=== PATIENT | male | born 1965 | race Caucasian/White ===

== ENCOUNTER 2022-03-12 16:09 | Emergency (ER) | payer OTHER, SELFPAY ==
[2022-03-12] VITALS (44 sets, daily range): BP systolic 126–161; BP diastolic 90–139; PULSE 101–180; RESP 13–26; TEMP 36.4; O2SAT 93–99
--- NOTE | ~2022-03-12 | XR_ITS ---
EXAMINATION: XR chest 1V portable DATE: 03/12/2022 16:47 INDICATION: Shortness of breath. TECHNIQUE: A single frontal view of the chest was obtained. COMPARISON: Chest single view 09/28/2018, chest CT 09/28/2018 FINDINGS: There are small pleural effusions. There is mild atelectasis at the lung bases. No pneumoth orax. The heart size is normal. IMPRESSION: 1. Small pleural effusions. 2. Mild atelectasis at the lung bases. Reviewed, dictated and finalized at location A.
--- NOTE | ~2022-03-12 | CT_ITS ---
EXAMINATION: CTA chest PE protocol DATE: 03/12/2022 18:10 INDICATION: sob with positive D Dimer TECHNIQUE: Computed tomography angiography (CTA) of the chest was performed with 100 mL Omnipaque-350 intravenous contrast timed to evaluate the pulmonary arteries. Coronal maximum intensity projection 3D-reconstructions were created by the technologist. The dose-length product (DLP) was 721.82 mGy-cm. Automated exposure control and iterative reconstruction technique were employed. COMPARISON: 09/28/2018. X-ray chest, same date FINDINGS: Study quality: . Pulmonary arteries: No pulmonary emboli detected. Thoracic aorta: Normal. Lung parenchyma and airways: Bibasilar atelectasis. Airways are clear. Thoracic inlet, axillae and chest wall: Bilateral gynecomastia. Mediastinum: Unchanged enlarged precarinal lymph node. Heart and pericardium: Mild cardiomegaly. Coronary artery calcifications: Mild. Pleura: Small left and moderate right pleural fluid collections. Upper abdomen: No significant finding. Bones: No acute osseous finding. IMPRESSION: No CT evidence of acute pulmonary embolus. Moderate right and small left pleural effusions. Reviewed, dictated and finalized at location K. IMPRESSION: No CT evidence of acute pulmonary embolus. Moderate right and small left pleura l effusions.
[2022-03-12] MEDS: dilTIAZem HCl INJ 25 MG/5 ML VIAL (16:32)
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
--- NOTE | 2022-03-12 16:36 | ECG_ITS ---
Measurements Intervals [place] Rate: 161 P: OR: 0 QRS: 92 QRSD: 71 T: 22 QT: 270 QTc: 442 Interpretive Statements ATRIAL FIBRILLATION WITH RAPID VENTRICULAR RESPONSE VENTRICULAR PREMATURE COMPLEX AND FREQUENT VENTRICULAR COUPLETS RIGHT AXIS DEVIATION NONSPECIFIC T-WAVE ABNORMALITY- INF/HIGH LAT LEADS BASELINE ARTIFACT- I, II, III, V4-V6 ABNORMAL ECG Electronically Signed On 03-12-2022 22:56:26 CDT by Magdaleno Tavera D.O.
[2022-03-12] MEDS: LEVALBUTEROL NEB 1.25 MG/3 ML INHALATION (16:52)
[2022-03-12 17:00] LABS: Hematocrit 44.3 % (40.0-54.0); Hemoglobin 15.1 g/dL (14.0-18.0); Mean Corpuscular HGB Conc 34.1 g/dL (32.0-36.0); Mean Corpuscular Hemoglobin 32.1 pg (27.0-31.0); Mean Corpuscular Volume 94.3 fL (78.0-102.0); Mean Platelet Volume 9.4 fl (8.7-11.0); Platelet Count Result 306 K/mm3 (150-420); Red Cell Distribution Width 13.8 % (11.6-14.4); White Blood Count 11.3 K/mm3 (4.8-10.8)
[2022-03-12 17:02] LABS: HCO3 ABG 22.5 mmol/L (23-29); Modified Allen's Test Pass; Oxygen Content ABG 21.7 %vol (16.0-22.0); Oxygen Saturation ABG 98.8 % (95-97); Oxyhemoglobin 96.8 % (94-100); PCO2 ABG 28.4 mmHg (35-45); PO2 ABG 140.2 mmHg (80-90); Site Drawn RIGHT RADIAL; Total Hemoglobin 15.8 g/dL (12.0-18.0); pH ABG 7.52 (7.35-7.45)
[2022-03-12 17:03] LABS: Device ROOM AIR
[2022-03-12] MEDS: dilTIAZem 100 MG/100 ML 100 MG/100 ML BAG IV CONT (17:07)
--- NOTE | 2022-03-12 17:15 | PC.NURSE ---
pt is sitting on stretcher texting on cell phone. pt denies any change in status. pt breathing is no longer labored at rest. pt is awaiting results at this time. will continue to monitor.
[2022-03-12 17:17] LABS: Glucose Point of Care 86 mg/dl (65-105)
[2022-03-12 17:18] LABS: Partial Thromboplastin Time 28.8 SEC (23.90-30.70); Prothrombin Time 11.4 Seconds (9.50-12.10)
[2022-03-12 17:33] LABS: Alanine Aminotransferase 42 U/L (16-63); Albumin Level 3.7 g/dL (3.4-5.0); Alkaline Phosphatase 72 U/L (46-116); Anion Gap 11 mmol/L (8-16); Aspartate Amino Transferase 29 U/L (15-37); Bilirubin,Total 1.3 mg/dL (0.00-1.00); Blood Urea Nitrogen 13 mg/dL (7-18); Calcium 8.9 mg/dL (8.5-10.1); Carbon Dioxide 23 mmol/L (21-32); Chloride 105 mmol/L (98-108); Estimated CRCL calculation 83 ml/min; Estimated Glomerular Filt Rate > 60; Glucose 114 mg/dL (70-99); Magnesium 1.8 mg/dL (1.8-2.4); NT Pro B Type Natriuretic Pept 10568 pg/mL (0-125); Osmolality Calculated 289 mOsm/kg (285-295); Potassium 4.1 mmol/L (3.5-5.1); Sodium 139 mmol/L (136-145); Total Protein 7.4 g/dL (6.4-8.2); Troponin I 42.6 ng/L (0.00-60.4)
[2022-03-12 17:41] LABS: D Dimer 2.03 mg/L (0.19-0.50)
[2022-03-12 17:47] LABS: SARS-CoV-2 RNA PCR Negative (Negative)
[2022-03-12 17:48] LABS: Band Neutrophils Percent 0 % (0-6); Basophils Percent Manual 0 % (0-1); Eosinophils Percent Manual 0 % (1-6); Influenza A QL RT-PCR Negative (Negative); Influenza B QL RT-PCR Negative (Negative); Lymphocytes Absolute Manual 1.92 K/mm3 (1.1-4.5); Lymphocytes Percent Manual 17 % (18-44); Monocytes Absolute Manual 2.48 K/mm3 (0.1-0.90); Monocytes Percent Manual 22 % (3-9); Neutrophils Absolute Manual 6.89 K/mm3 (1.3-6.7); Neutrophils Percent Manual 61 % (46-73); Total Cells Counted 100
[2022-03-12 17:49] LABS: Platelet Estimate Adequate (Adequate)
[2022-03-12] MEDS: FUROSEMIDE INJ 40 MG/4 ML VIAL IV PUSH (17:53)
[2022-03-12] MEDS: DIGOXIN INJ 250 MCG/ML 2 ML AMP (*BKC) IV PUSH (17:55)
--- NOTE | 2022-03-12 17:58 | PC.NURSE ---
PT TO CT AT THIS TIME. ICE CHIPS WERE PROVIDED REQUESTED. PT WAS INCREASED TO 20MG DILTIAZEM DRIP PER DR LOCO. IV MEDICATION IS INFUSING WITHOUT DIFFICULTY. WILL CONTINUE TO MONITOR.
--- NOTE | 2022-03-12 18:16 | PC.NURSE ---
PT HAS RETURNED FROM CT, TO RR WITHOUT DISTRESS. PT RETURNED TO IV MEDICATION AND MONITOR. NAD NOTED. PT DENIES COMPLAINTS, PT CONTINUES TO REMAIN TACHYCARDIC. WILL CONTINUE TO MONITOR.
--- NOTE | 2022-03-12 18:49 | PC.NURSE ---
pt up to bedside to use urinal 1000ml total output this far.
[2022-03-12 19:20] LABS: Add Urine Microscopic? NO; Appearance Urine Clear (Clear); Bilirubin Urine Negative (Negative); Blood Urine Negative (Negative); Color Urine Light Yellow (Yellow); Glucose Urine UA Negative (Negative); Ketones Urine Negative (Negative); Leukocyte Esterase Ur Negative LEU/UL (Negative); Nitrate Urine Negative (Negative); Protein Urine Negative (Negative); Specific Grav Ur 1.015 (1.010-1.020); Urobilinogen Urine 0.2 mg/dL (0.2-1.0)
[2022-03-12 19:28] LABS: Amphetamine Screen Urine Negative (Negative); Barbiturate Screen Urine Negative (Negative); Benzodiazepines Screen Urine Negative (Negative); Cannabinoid Screen Urine Negative (Negative); Cocaine Screen Urine Negative (Negative); Methadone Screen Urine Negative (Negative); Opiate Screen Urine Negative (Negative); Phencyclidine Screen Urine Negative (Negative)
== END 2022-03-12 20:58 | disposition short-term general hospital (02) ==
PROVIDERS: Emergency Provider Internal Medicine Critical Care Medicine; PCP Internal Medicine
DX: I48.20 Chronic atrial fibrillation, unspecified (principal); I50.9 Heart failure, unspecified; J44.1 Chronic obstructive pulmonary disease with (acute) exacerbation; Z20.822 Contact with and (suspected) exposure to COVID-19
CPT/HCPCS: 36415; 36600; 71045; 71275; 80053; 80307; 81003; 82805; 82948; 83735; 83880; 84484; 85025; 85380; 85610; 85730; 87502; 93005; 94640; 96365; 96372; 96375; 99285; C9803; J1160; J1940; Q9967; U0003; U0005

== ENCOUNTER 2022-03-12 21:29 | Inpatient (IN) | payer OTHER, SELFPAY ==
--- NOTE | ~2022-03-12 | US_ITS ---
US abdomen limited INDICATION: PROCEDURE: Realtime right upper abdominal ultrasound. COMPARISON: No prior studies for comparison. FINDINGS: The pancreas is normal without focal mass or pancreatic ductal dilation. Liver echotexture is increased, consistent with fatty infiltration. There is normal directional flow in the portal ve in. Gallbladder wall is thickened with trace pericholecystic fluid. No definite gallstones. Common bile duct measures 4.4 mm. No sonographic De Santiago's sign. IMPRESSION: 1: Hepatic steatosis. 2: Thickened gallbladder wall with pericholecystic fluid. Consider acalculous cholecystitis in the a ppropriate clinical setting. Reviewed, dictated and finalized at location A. IMPRESSION: 1: Hepatic steatosis. 2: Thickened gallbladder wall with pericholecystic fluid. Consider acalculous cholecystitis in the appropriate clinical setting.
[2022-03-12 21:30] VITALS: BMI 29.9
--- NOTE | 2022-03-12 21:30 | ADMGEN ---
This patient, Db Carbajal, was admitted to IMU Room 205-01. Patient/family oriented to hospital policies and general routines including ID bracelet, bed and alarms, visiting hours, pain management, procedures, bathroom and other care routines, personal items, smoking policy, room service/diet, and visiting hours. Information on how to activate the Rapid Response Team has been discussed. Patient/Family are encouraged to report perceived risks to care and to ask questions if they do not understand what they are told or what they should do.
[2022-03-12 21:36] VITALS: BP 137/74; PULSE 108; RESP 20; TEMP 37.3; O2SAT 98
[2022-03-12 21:37] VITALS: BMI 28.9
[2022-03-12 22:00] VITALS: PULSE 124
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
--- NOTE | 2022-03-12 23:38 | ECG_ITS ---
Measurements Intervals [place] Rate: 122 P: MT: 0 QRS: 53 QRSD: 67 T: 155 QT: 307 QTc: 438 Interpretive Statements ATRIAL FIBRILLATION WITH RAPID VENTRICULAR RESPONSE VENTRICULAR TRIPLET AND VENTRICULAR PREMATURE COMPLEX BORDERLINE R WAVE PROGRESSION, ANTERIOR LEADS NONSPECIFIC ST & T-WAVE ABNORMALITY- DIFFUSE LEADS ABNORMAL ECG Electronically Signed On 03-13-2022 16:12:40 CDT by Magdaleno Tavera D.O.
[2022-03-12 23:49] VITALS: BP 131/81; PULSE 115; RESP 18; TEMP 36.6; O2SAT 99
[2022-03-12 23:55] VITALS: PULSE 119
[2022-03-12 23:56] LABS: Troponin I 0.037 ng/mL (0.000-0.034)
[2022-03-13] VITALS (18 sets, daily range): BP systolic 109–155; BP diastolic 73–98; PULSE 74–124; RESP 14–20; TEMP 36.3–36.9; O2SAT 94–99
--- NOTE | 2022-03-13 | ECHO_ITS ---
Patient Info Name: Db Carbajal Age: 56 years : 1965 Gender: Male Ht: 71 in Wt: 207 lbs BSA: 2.19 m2 HR: 81 bpm BP: 155 / 98 mmHg Exam Date: 03/13/2022 8:28 AM Exam Location: [facility] Patient Status: Outpatient Admit Date: 03/12/2022 Staff Ordering Physician: Marley Rome DO Deputy Fire Marshal: Shun De Santiago RDCS, RT Attending Provider: Marley Rome DO Referring Physician: Wild SINGH; Exam Type: CA echo dop color flow w con Study Info Indications I48.1 - Persistent atrial fibrillation Complete two-dimensional, color flow and Doppler transthoracic echocardiogram is performed with contrast to opacify the left ventricle and to improve the deliniation of the left ventricle endocardial borders. Summary 1. Left ventricular systolic function is moderately reduced, estimated at 30-35%. 2. Left ventricular chamber dimension is mildly enlarged. 3. There is mildly increased left ventricular wall thickness. 4. The left ventricular diastolic function is abnormal. 5. Right ventricular chamber dimension is moderately enlarged. 6. Right ventricular systolic function is reduced. 7. There is mild aortic valve sclerosis. 8. There is mild mitral valve regurgitation. 9. There is mild tricuspid valve regurgitation. 10. No pulmonary hypertension, estimated pulmonary arterial systolic pressure is 28 mmHg. 11. There is mild pulmonic regurgitation. Left Ventricle Left ventricular chamber dimension is mildly enlarged. Left ventricular systolic function is moderately reduced, estimated at 30-35%. There is mildly increased left ventricular wall thickness. Left ventricular septal wall motion is normal. The left ventricular diastolic function is abnormal. Right Ventricle Right ventricular chamber dimension is moderately enlarged. Right ventricular systolic function is reduced. Left Atria Left atrial chamber dimension is mildly enlarged. Right Atria Right atrial chamber dimension is moderately enlarged. Atrial Septum Intact interatrial septum visualized by color flow imaging. Aortic Valve The aortic valve is trileaflet. There is mild aortic valve sclerosis. There is no aortic valve stenosis. There is no aortic valve regurgitation. Pulmonic Valve The pulmonic valve is normal. There is no pulmonic valve stenosis. There is mild pulmonic regurgitation. Mitral Valve The mitral valve has normal leaflets. There is no mitral valve stenosis. There is mild mitral valve regurgitation. Tricuspid Valve The tricuspid valve leaflets are normal. There is no significant tricuspid valve stenosis. There is mild tricuspid valve regurgitation. No pulmonary hypertension, estimated pulmonary arterial systolic pressure is 28 mmHg. Pericardium/Pleural The pericardium appears normal. There is no pericardial effusion. Inferior Vena Cava Dilated inferior vena cava with <50% collapse upon inspiration consistent with Empty right atrial pressure, 15 mmHg. Aorta The aortic root size at the sinus of Valsalva is normal. The prox ascending aorta size is normal. Left Ventricular Outflow Tract Name Value Normal LVOT 2D LVOT Diameter 2.04 cm LVOT Doppler ---------
[2022-03-13] MEDS: METOPROLOL TARTRATE 50 MG TAB PO ×3 (00:46→20:27)
[2022-03-13] MEDS: dilTIAZem 100 MG/100 ML 100 MG/100 ML BAG 10 MG IV CONT ×2 (01:07→09:55)
[2022-03-13 03:07] LABS: Troponin I 0.042 ng/mL (0.000-0.034)
[2022-03-13 04:51] LABS: Basophils Absolute Auto 0.1 K/mm3 (0.0-0.1); Basophils Percent Auto 1.1 % (0.2-1.2); Eosinophils Absolute Auto 0.1 K/mm3 (0-0.3); Eosinophils Percent Auto 0.7 % (0-4.4); Hematocrit 44.7 % (42.0-52.0); Hemoglobin 14.8 g/dL (14.0-18.0); Immature Granulocyte Absolute 0.03 K/mm3 (0.00-0.031); Immature Granulocyte Percent A 0.3 % (0-0.5); Lymphocytes Absolute Auto 1.75 K/mm3 (0.9-3.2); Lymphocytes Percent Auto 16.1 % (18.3-44.2); Mean Corpuscular HGB Conc 33.1 g/dl (32-36); Mean Corpuscular Hemoglobin 31.7 pg (26-34); Mean Corpuscular Volume 95.7 fl (80-100); Mean Platelet Volume 9.4 fl (7.4-10.4); Monocytes Absolute Auto 2.1 K/mm3 (0.1-0.6); Monocytes Percent Auto 19.7 % (2.6-8.5); Neutrophils Absolute Auto 6.7 K/mm3 (1.3-6.7); Neutrophils Percent Auto 62.1 % (45.5-73.1); Platelet Count Result 295 k/mm3 (150-375); Red Blood Count 4.67 M/mm3 (4.6-6.20); Red Cell Distribution Width 14.5 % (11.5-14.5); White Blood Count 10.9 K/mm3 (4.5-10.0)
[2022-03-13 05:05] LABS: Cholesterol 163 mg/dL (0-200); HDL Direct 33 mg/dL; Triglycerides 97 mg/dL (<150)
[2022-03-13 05:07] LABS: Magnesium 1.9 mg/dL (1.6-2.3); Phosphorus 4.3 mg/dL (2.5-4.5)
[2022-03-13 05:08] LABS: Anion Gap 6 mmol/L (8-16); Blood Urea Nitrogen 14 mg/dL (9-20); Calcium 8.8 mg/dL (8.4-10.2); Carbon Dioxide 31 mmol/L (22-30); Chloride 102 mmol/L (98-107); Estimated CRCL calculation 94 ml/min; Estimated Glomerular Filt Rate > 60; Glucose 113 mg/dL (65-110); Sodium 139 mmol/L (137-145)
[2022-03-13 05:17] LABS: LDL Cholesterol Direct 102 mg/dL
[2022-03-13 05:21] LABS: Troponin I 0.043 ng/mL (0.000-0.034)
[2022-03-13 06:17] LABS: Folic Acid > 20.0 ng/mL (2.76->20)
[2022-03-13] MEDS: PERFLUTREN LIPID MICROSPHERES 1.5 ML VIAL DILUTED TO 10 ML TOTAL VOLUME IV PUSH (08:26)
--- NOTE | 2022-03-13 08:26 | IVDEFINITY ---
Prior to administration of IV Definity the patient was educated on the risks and benefits of the imaging enhancing agent including potential adverse side effects. The patient verbalized understanding. Allergies were verified. No exclusion criteria were identified and at least one of the following inclusion criteria were met: 1) physician request, 2) patient technically difficult to image (per the [place] [employer] guidelines of two or more segments not discernable within the apical view), or 3) questionable left ventricular function. ?
--- NOTE | 2022-03-13 09:10 | PM.IMPN ---
Progress Note: A&P Assessment and Plan (1) Atrial fibrillation with rapid ventricular response: Code(s): I48.91 - Unspecified atrial fibrillation Status: Acute Assessment and Plan: On diltiazem ggt with rate control. Will continue for now. Appreciate Cardiology recommendations. -Continue diltiazem ggt and will need to transition to oral -Continue enoxaparin (2) Acute exacerbation of CHF (congestive heart failure): Code(s): I50.9 - Heart failure, unspecified Status: Acute Assessment and Plan: EF 30-35% with dilated LV, enlarged RV, mild pulmonic regurgitation. (3) Elevated troponin: Code(s): R77.8 - Other specified abnormalities of plasma proteins Status: Acute Assessment and Plan: Troponin flat. Likely elevated due to demand ischemia w/ elevated heart rate w/ atrial fibrillation with rvr. Appreciate recommendations from cardiology. (4) Chronic alcohol abuse: Code(s): F10.10 - Alcohol abuse, uncomplicated Status: Acute Assessment and Plan: CIWA protocol. (5) Continuous tobacco abuse: Code(s): Z72.0 - Tobacco use Status: Acute Assessment and Plan: Nicotine patch (6) Excessive daytime sleepiness: Code(s): G47.19 - Other hypersomnia Status: Acute Assessment and Plan: Awake and alert this morning. Subjective Date/time seen: 03/13/22 09:10 Patient denies chest pain, palpitations, lightheadedness. Patient says he has never had alcohol withdrawal because he says he has never stopped. Review of Systems Cardiovascular: Cardiovascular: Denies lightheadedness and Denies palpitations Respiratory: Respiratory: Denies dyspnea Exam Narrative: GENERAL: NAD, cooperative HEENT: Normocephalic, atraumatic, anicteric NECK: Supple CV: Normal S1, S2, RRR, No MRG RESP: CTAB, Normal work of breathing. EXTREMITIES: Warm and well perfused, no clubbing, cyanosis, or edema. SKIN: warm, dry and intact. NEURO: CN 2-12 grossly intact. . Objective Data Vital Signs Vital Signs: Vital Signs - 24 hr 03/12/22 21:36 03/12/22 22:00 03/12/22 22:00 Temperature 99.1 F Pulse Rate 108 H 124 H Pulse Rate [Monitor] Respiratory Rate 20 Blood Pressure 137/74 Pulse Oximetry 98 Oxygen Delivery Room Air 03/12/22 23:49 03/12/22 23:55 03/13/22 00:46 Temperature 97.9 F Pulse Rate 115 H 119 H Pulse Rate [Monitor] 119 H Respiratory Rate 18 Blood Pressure 131/81 Pulse Oximetry 99 Oxygen Delivery 03/13/22 00:00 03/13/22 00:00 03/13/22 01:07 Temperature Pulse Rate 103 H 124 H 124 H Pulse Rate [Monitor] Respiratory Rate 18 Blood Pressure Pulse Oximetry 99 Oxygen Delivery Room Air 03/13/22 02:00 03/13/22 04:00 03/13/22 04:00 Temperature Pulse Rate 108 H 92 108 H Pulse Rate [Monitor] Respiratory Rate 18 Blood Pressure Pulse Oximetry 99 Oxygen Delivery Room Air 03/13/22 04:00 03/13/22 06:00 03/13/22 08:00 Temperature 97.9 F 97.3 F L Pulse Rate 106 H 102 H 90 Pulse Rate [Monitor] Respiratory Rate 20 16 Blood Pressure 155/98 H 114/95 H Pulse Oximetry 99 95 Oxygen Delivery Intake/Output Intake/Output: Intake & Output 03/10/22 03/11/22 03/12/22 03/13/22 23:59 23:59 23:59 23:59 Intake Total 450 Balance 450 Meds/Results Medications: Active Medications Generic Name Dose Route Start Last Admin Trade Name Freq PRN Reason Stop Dose Admin Acetaminophen 650 mg 03/12/22 20:53 Acetaminophen 325 Mg Tablet PO Q4H PRN Mild Pain (1-3) or Fever Al Hydrox/Mg Hydrox/Simethicone 30 ml 03/12/22 20:53 Mag Hydrox/Al Hydrox/Simeth 30 Ml Udc PO QID PRN Dyspepsia Bisacodyl 5 mg 03/12/22 20:53 Bisacodyl 5 Mg Tablet Ec PO DAILY PRN Constipation Enoxaparin Sodium 95 mg 03/13/22 09:00 Enoxaparin 100 Mg/Ml Syringe SUB-Q Q12H [facility] Folic Acid 1 mg 0
--- NOTE | 2022-03-13 09:53 | PM.CNCAR ---
Assessment and Plan Assessment and plan (1) Atrial fibrillation with rapid ventricular response: Code(s): I48.91 - Unspecified atrial fibrillation Status: Acute (2) Acute exacerbation of CHF (congestive heart failure): Code(s): I50.9 - Heart failure, unspecified Status: Acute (3) Continuous tobacco abuse: Code(s): Z72.0 - Tobacco use Status: Acute (4) Chronic alcohol abuse: Code(s): F10.10 - Alcohol abuse, uncomplicated Status: Acute (5) Elevated troponin: Code(s): R77.8 - Other specified abnormalities of plasma proteins Status: Acute Additional Plan -AFib with RVR -acute heart failure exacerbation unspecified and new onset -chronic alcohol use -chronic tobacco use -mild troponin elevation This is 56-year-old patient who is alcoholic and chronic tobacco use presents with shortness of breath, lower extremity edema, abdominal distention and was found to be in AFib with RVR. Started on diltiazem 10 mg an hour with improvement in the heart rate. Shortness of breath improved. CTA of the thorax suggestive of bilateral pleural effusions.. -await echocardiogram results. -agree with metoprolol 50 mg p.o. b.i.d. -start Lasix 20 mg IV b.i.d. -monitor renal function electrolytes. -radiology stated that on the CT scan of the chest that there are no upper abdominal findings(based on that I assume that the liver looks normal). History of Present Illness History of Present Illness Consult date/time: date of /21/22 09:53 Chief complaint: Shortness of breath, lower extremity edema Requesting physician: Marley Rome DO Consult reason: atrial fibrillation and congestive heart failure Reason For Visit: New onset a fib Narrative: this is 56-year-old patient with past medical history of chronic alcoholism, chronic tobacco abuse and essential hypertension who presented to the ER at [facility] due to shortness of breath. This started about a couple weeks ago associated with lower extremity edema, abdominal distention, orthopnea paroxysmal nocturnal dyspnea. He drinks alcohol heavily. Denies chest pain, syncope. He stated that long time ago he was told that his heart is irregular and was given blood thinner but stopped taking it very long time ago. No follow-up with doctors. Currently his heart rate is better controlled but remains in AFib and on diltiazem 10 mg an hour. His breathing is much better today. white cell count 11.3 on admission and today 10.9. Troponins mildly elevated at 0.037, 0.042, 0.043 COVID negative, urine drug screen negative, EKG reviewed and as myself shows AFib with RVR, PVCs CT thorax shows no pulmonary embolism but they are right and left pleural effusions TSH 3.5 Review of Systems Constitutional: Constitutional: Denies chills, Denies fever(s) and Denies poor appetite Eyes: Eyes: Denies eye discharge, Denies loss of vision, Denies eye pain and Denies photophobia ENT: Denies dizziness, Denies epistaxis, Denies nasal congestion and Denies sore throat Cardiovascular: Cardiovascular: Denies chest pain, Denies syncope, Reports pedal edema, Reports leg edema, Reports palpitations, Reports dyspnea, Reports dyspnea on exertion and Reports orthopnea Respiratory: Respiratory: Denies cough, Reports dyspnea, Reports dyspnea on exertion and Denies wheezing Gastrointestinal: Gastrointestinal: Denies abdominal pain, Reports bloating, Denies diarrhea, Denies nausea and Denies vomiting Genitourinary: Genitourinary: Denies hematuria, Denies genital lesions and Denies dysuria Musculoskeletal: Musculoskeletal: Denies arthralgias, Denies joint swelling and Denies numbness Integumentary/Breasts: Skin/Breast: Denies pruritus and Denies rash Neurologic: Denies dizziness, Denies syncope, Denies loss of vision and Denies numbness Psychiatric: Psychiatric: Denies anxiety and Denies depression Endocrine: Endocrine: Denies cold intoleran
[2022-03-13] MEDS: THIAMINE HCL 100 MG TABLET PO (09:54)
[2022-03-13] MEDS: ENOXAPARIN 100 MG/ML SYRINGE 95 MG SUB-Q ×2 (09:54→20:27)
[2022-03-13] MEDS: FOLIC ACID 1 MG TABLET PO (09:54)
[2022-03-13] MEDS: FUROSEMIDE INJ 40 MG/4 ML VIAL 20 MG IV PUSH ×2 (13:29→20:26)
--- NOTE | 2022-03-13 23:04 | PCRCNOTE ---
Unable to perform apnea link on 03/13. Pt is on lasix. Apnea link to be done on a night where less-no lasix are administered.
[2022-03-14] VITALS (17 sets, daily range): BP systolic 107–124; BP diastolic 85–98; PULSE 89–133; RESP 12–17; TEMP 36.1–37.3; O2SAT 96–99
[2022-03-14] MEDS: ENOXAPARIN 100 MG/ML SYRINGE 95 MG SUB-Q (08:40)
[2022-03-14] MEDS: THIAMINE HCL 100 MG TABLET PO (08:40)
[2022-03-14] MEDS: METOPROLOL TARTRATE 50 MG TAB PO ×3 (08:40→23:52)
[2022-03-14] MEDS: FOLIC ACID 1 MG TABLET PO (08:40)
[2022-03-14] MEDS: FUROSEMIDE INJ 40 MG/4 ML VIAL 20 MG IV PUSH ×2 (08:40→17:14)
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
--- NOTE | 2022-03-14 09:24 | PM.PNCARD ---
Progress Note: A&P Assessment and Plan (1) Atrial fibrillation with rapid ventricular response: Code(s): I48.91 - Unspecified atrial fibrillation Status: Acute Assessment and Plan: New onset. Rate control strategy being pursued. Reasonable rate control with metoprolol 50mg b.i.d. Lopressor 5mg IV PRN q4 for sustained HR >150 Will shift him from lovenox to apixaban today (CHADSVASc score 2 for HTN, CHF) Can consider cardioversion as an outpatient in 4-6 weeks (2) Cardiomyopathy: Code(s): I42.9 - Cardiomyopathy, unspecified Status: Acute Assessment and Plan: New diagnosis. EF 30 - 35%. Etiology unknown but probably secondary to chronic alcohol abuse, ? tachycardia induced. No ischemic symptoms but cannot exclude ischemic etiology. Initiate GDMT with Entresto, spironolactone, BB. Can consider adding Jardiance when volume status is stable I discussed the concept of a LifeVest with him, he is agreeable to this. Order has been placed. Monitor renal function and electrolytes with daily BMP Anticipate discharge in 24 - 48 hours if he remains stable (3) Acute exacerbation of CHF (congestive heart failure): Code(s): I50.9 - Heart failure, unspecified Status: Acute Assessment and Plan: Worsening symptoms of orthopnea, dyspnea, and swelling over the past 2 weeks. Echo showing reduced LV systolic function with EF 30 - 35% and some RV dysfunction as well. Continue IV diuresis 1500cc fluid restriction Daily weights Compression stockings Low Na diet (4) Continuous tobacco abuse: Code(s): Z72.0 - Tobacco use Status: Acute Assessment and Plan: Smoking cessation recommended (5) Chronic alcohol abuse: Code(s): F10.10 - Alcohol abuse, uncomplicated Status: Acute Assessment and Plan: Recommend abstinence from ETOH due to cardiotoxic effects. Subjective Date/time seen: 03/14/22 09:24 Cardiology follow up for atrial fibrillation, CHF Feeling better today. Still experiencing some orthopnea and has LE swelling but denies any shortness of breath. Review of Systems Constitutional: Constitutional: Denies chills, Denies fever(s) and Denies poor appetite Eyes: Eyes: Denies eye discharge, Denies loss of vision, Denies eye pain and Denies photophobia ENT: Denies dizziness, Denies epistaxis, Denies nasal congestion and Denies sore throat Cardiovascular: Cardiovascular: Denies chest pain, Denies syncope, Reports pedal edema, Reports leg edema, Denies palpitations, Reports dyspnea, Reports dyspnea on exertion and Reports orthopnea Respiratory: Respiratory: Denies cough, Reports dyspnea, Reports dyspnea on exertion and Denies wheezing Gastrointestinal: Gastrointestinal: Denies abdominal pain, Reports bloating, Denies diarrhea, Denies nausea and Denies vomiting Genitourinary: Genitourinary: Denies hematuria, Denies genital lesions and Denies dysuria Musculoskeletal: Musculoskeletal: Denies arthralgias, Denies joint swelling and Denies numbness Integumentary/Breasts: Skin/Breast: Denies pruritus and Denies rash Neurologic: Denies dizziness, Denies syncope, Denies loss of vision and Denies numbness Psychiatric: Psychiatric: Denies anxiety and Denies depression Endocrine: Endocrine: Denies cold intolerance, Denies heat intolerance and Denies palpitations Hematologic/Lymphatic: Hematologic/Lymphatic: Denies easy bleeding and Denies easy bruising Allergic/Immunologic: Allergic/Immunologic: Denies urticaria and Denies wheezing Exam Const: General: comfortable, no acute distress, alert and awake Orientation/consciousness: patient oriented x3 Other: Pleasant gentleman lying comfortably in bed. HENMT: Head: normal to inspection Eyes: General: appearance normal, both eyes and all related structures Pupils: Equal, round and reactive pupils present Neck: Neck: normal visual inspection, supple and no JVD Carotids: no
[2022-03-14 09:42] LABS: Basophils Absolute Auto 0.1 K/mm3 (0.0-0.1); Basophils Percent Auto 1.1 % (0.2-1.2); Eosinophils Absolute Auto 0.1 K/mm3 (0-0.3); Eosinophils Percent Auto 1.3 % (0-4.4); Hematocrit 48.3 % (42.0-52.0); Hemoglobin 15.8 g/dL (14.0-18.0); Immature Granulocyte Absolute 0.03 K/mm3 (0.00-0.031); Immature Granulocyte Percent A 0.3 % (0-0.5); Lymphocytes Absolute Auto 1.79 K/mm3 (0.9-3.2); Lymphocytes Percent Auto 16.7 % (18.3-44.2); Mean Corpuscular HGB Conc 32.7 g/dl (32-36); Mean Corpuscular Hemoglobin 31.9 pg (26-34); Mean Corpuscular Volume 97.4 fl (80-100); Mean Platelet Volume 9.6 fl (7.4-10.4); Monocytes Absolute Auto 1.3 K/mm3 (0.1-0.6); Monocytes Percent Auto 12.4 % (2.6-8.5); Neutrophils Absolute Auto 7.3 K/mm3 (1.3-6.7); Neutrophils Percent Auto 68.2 % (45.5-73.1); Platelet Count Result 309 k/mm3 (150-375); Red Blood Count 4.96 M/mm3 (4.6-6.20); Red Cell Distribution Width 14.3 % (11.5-14.5); White Blood Count 10.7 K/mm3 (4.5-10.0)
[2022-03-14 09:59] LABS: Anion Gap 9 mmol/L (8-16); Blood Urea Nitrogen 20 mg/dL (9-20); Calcium 9.1 mg/dL (8.4-10.2); Carbon Dioxide 29 mmol/L (22-30); Chloride 99 mmol/L (98-107); Estimated CRCL calculation 94 ml/min; Estimated Glomerular Filt Rate > 60; Glucose 166 mg/dL (65-110); Potassium 3.8 mmol/L (3.4-5.0); Sodium 137 mmol/L (137-145)
[2022-03-14] MEDS: APIXABAN 5 MG TABLET PO (20:11)
[2022-03-14] MEDS: SACUBITRIL/VALSARTAN 24-26 MG TABLET 1 TAB PO (20:11)
[2022-03-14] MEDS: ACETAMINOPHEN 325 MG TABLET 650 MG PO (21:17)
[2022-03-15] VITALS (18 sets, daily range): BP systolic 103–128; BP diastolic 65–96; PULSE 88–136; RESP 16–20; TEMP 36.3–37.1; O2SAT 95–100
--- NOTE | 2022-03-15 05:00 | ECG_ITS ---
Measurements Intervals [place] Rate: 115 P: NC: 0 QRS: 46 QRSD: 69 T: 208 QT: 337 QTc: 466 Interpretive Statements ATRIAL FIBRILLATION WITH RAPID VENTRICULAR RESPONSE VENTRICULAR COUPLETS AND VENTRICULAR PREMATURE COMPLEXES BORDERLINE R WAVE PROGRESSION, ANTERIOR LEADS BORDERLINE T WAVE ABNORMALITY- DIFFUSE LEADS ABNORMAL ECG Electronically Signed On 03-15-2022 16:54:34 CDT by Magdaleno Tavera D.O.
[2022-03-15 06:49] LABS: Basophils Absolute Auto 0.1 K/mm3 (0.0-0.1); Basophils Percent Auto 0.9 % (0.2-1.2); Eosinophils Absolute Auto 0.3 K/mm3 (0-0.3); Eosinophils Percent Auto 2.3 % (0-4.4); Hematocrit 47.6 % (42.0-52.0); Immature Granulocyte Absolute 0.04 K/mm3 (0.00-0.031); Immature Granulocyte Percent A 0.4 % (0-0.5); Lymphocytes Absolute Auto 2.07 K/mm3 (0.9-3.2); Lymphocytes Percent Auto 18.5 % (18.3-44.2); Mean Corpuscular HGB Conc 33.6 g/dl (32-36); Mean Corpuscular Hemoglobin 32.1 pg (26-34); Mean Corpuscular Volume 95.4 fl (80-100); Mean Platelet Volume 9.3 fl (7.4-10.4); Monocytes Absolute Auto 1.9 K/mm3 (0.1-0.6); Monocytes Percent Auto 16.5 % (2.6-8.5); Neutrophils Absolute Auto 6.9 K/mm3 (1.3-6.7); Neutrophils Percent Auto 61.4 % (45.5-73.1); Platelet Count Result 318 k/mm3 (150-375); Red Blood Count 4.99 M/mm3 (4.6-6.20); White Blood Count 11.2 K/mm3 (4.5-10.0)
[2022-03-15 06:59] LABS: Alanine Aminotransferase 26 U/L (6-50); Albumin Level 3.9 g/dL (3.5-5.1); Alkaline Phosphatase 66 U/L (38-126); Anion Gap 5 mmol/L (8-16); Aspartate Amino Transferase 29 U/L (17-59); Blood Urea Nitrogen 19 mg/dL (9-20); Calcium 8.1 mg/dL (8.4-10.2); Carbon Dioxide 33 mmol/L (22-30); Chloride 101 mmol/L (98-107); Estimated CRCL calculation 107 ml/min; Estimated Glomerular Filt Rate > 60; Glucose 93 mg/dL (65-110); Potassium 3.7 mmol/L (3.4-5.0); Sodium 139 mmol/L (137-145)
[2022-03-15] MEDS: SPIRONOLACTONE 25 MG TABLET PO (09:02)
[2022-03-15] MEDS: SACUBITRIL/VALSARTAN 24-26 MG TABLET 1 TAB PO ×2 (09:02→21:24)
[2022-03-15] MEDS: FUROSEMIDE INJ 40 MG/4 ML VIAL 20 MG IV PUSH ×2 (09:02→17:57)
[2022-03-15] MEDS: APIXABAN 5 MG TABLET PO ×2 (09:03→21:23)
[2022-03-15] MEDS: METOPROLOL TARTRATE 50 MG TAB PO (09:03)
[2022-03-15] MEDS: THIAMINE HCL 100 MG TABLET PO (09:03)
[2022-03-15] MEDS: FOLIC ACID 1 MG TABLET PO (09:03)
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
[2022-03-15] MEDS: METOPROLOL TARTRATE 25 MG TABLET 75 MG PO ×2 (14:53→21:24)
--- NOTE | 2022-03-15 15:16 | PM.PNCARD ---
Progress Note: A&P Assessment and Plan (1) Atrial fibrillation with rapid ventricular response: Code(s): I48.91 - Unspecified atrial fibrillation Status: Acute Assessment and Plan: New onset. Rate control strategy being pursued. Heart rate suboptimally controlled with metoprolol 50mg b.i.d.. Increase to 75 mg Q 8h. Additional adjustments based on heart rate and BP. Once heart rate controlled attempt to transition to Toprol XL equivalent dosing. If unable to adequately control heart rate may require ELIZABETH guided cardioversion prior to discharge to restore sinus rhythm otherwise rate control strategy initially pursued an appropriate if heart rate controlled. Lopressor 5mg IV PRN q4 for sustained HR >150 Continue Apixaban (CHADSVASc score 2 for HTN, CHF) (2) Cardiomyopathy: Code(s): I42.9 - Cardiomyopathy, unspecified Status: Acute Assessment and Plan: New diagnosis. EF 30 - 35%. Etiology unknown but probably secondary to chronic alcohol abuse, ? tachycardia induced. No ischemic symptoms but cannot exclude ischemic etiology. Continue GDMT with Entresto, spironolactone, BB. Would add Jardiance 10 mg daily if able to obtain. Can consider adding Jardiance when volume status is stable Stated with LifeVest this morning. Monitor renal function and electrolytes with daily BMP (3) Acute exacerbation of CHF (congestive heart failure): Code(s): I50.9 - Heart failure, unspecified Status: Acute Assessment and Plan: Worsening symptoms of orthopnea, dyspnea, and swelling over the past 2 weeks. Echo showing reduced LV systolic function with EF 30 - 35% and some RV dysfunction as well. Continue IV diuresis although appearing euvolemia. Anticipate transition to oral Lasix his symptoms controlled tomorrow morning. 1500cc fluid restriction Daily weights Compression stockings Low Na diet (4) Continuous tobacco abuse: Code(s): Z72.0 - Tobacco use Status: Acute Assessment and Plan: Smoking cessation recommended (5) Chronic alcohol abuse: Code(s): F10.10 - Alcohol abuse, uncomplicated Status: Acute Assessment and Plan: Abstinence from ETOH due to cardiotoxic effects. Subjective Date/time seen: Date of service: 03/15/22 15:16 Follow-up for atrial fibrillation with RVR, CHF Patient feeling much better overall. Denies palpitation, chest pain. Has some shortness of breath early this morning much improved now. Edema minimal. Denies dizziness or lightheadedness. LifeVest fitted this morning. Remains tachycardic in atrial fibrillation heart rate 110's to 130s Review of Systems Review of Systems: No fevers, chills, dizziness or bleeding. Constitutional: Constitutional: Denies chills, Denies fever(s) and Denies poor appetite Eyes: Eyes: Denies eye discharge, Denies loss of vision, Denies eye pain and Denies photophobia ENT: Denies dizziness, Denies epistaxis, Denies nasal congestion and Denies sore throat Cardiovascular: Cardiovascular: Denies chest pain, Denies syncope, Reports pedal edema, Reports leg edema, Denies palpitations, Reports dyspnea, Reports dyspnea on exertion and Reports orthopnea Respiratory: Respiratory: Denies cough, Reports dyspnea, Reports dyspnea on exertion and Denies wheezing Gastrointestinal: Gastrointestinal: Denies abdominal pain, Reports bloating, Denies diarrhea, Denies nausea and Denies vomiting Genitourinary: Genitourinary: Denies hematuria, Denies genital lesions and Denies dysuria Musculoskeletal: Musculoskeletal: Denies arthralgias, Denies joint swelling and Denies numbness Integumentary/Breasts: Skin/Breast: Denies pruritus and Denies rash Neurologic: Denies dizziness, Denies syncope, Denies loss of vision and Denies numbness Psychiatric: Psychiatric: Denies anxiety and Denies depression Endocrine: Endocrine: Denies cold intolerance, Denies heat intolerance and Denies palpitations Hematologic/
[2022-03-16] VITALS (17 sets, daily range): BP systolic 94–124; BP diastolic 75–91; PULSE 82–141; RESP 16–20; TEMP 36.2–37.1; O2SAT 94–100
[2022-03-16 04:41] LABS: Anion Gap 7 mmol/L (8-16); Blood Urea Nitrogen 24 mg/dL (9-20); Calcium 8.5 mg/dL (8.4-10.2); Carbon Dioxide 33 mmol/L (22-30); Chloride 99 mmol/L (98-107); Estimated CRCL calculation 85 ml/min; Estimated Glomerular Filt Rate > 60; Glucose 111 mg/dL (65-110); Potassium 3.8 mmol/L (3.4-5.0); Sodium 139 mmol/L (137-145)
[2022-03-16] MEDS: METOPROLOL TARTRATE 25 MG TABLET 75 MG PO ×3 (06:02→20:37)
[2022-03-16] MEDS: THIAMINE HCL 100 MG TABLET PO (09:21)
[2022-03-16] MEDS: FUROSEMIDE INJ 40 MG/4 ML VIAL 20 MG IV PUSH (09:21)
[2022-03-16] MEDS: FOLIC ACID 1 MG TABLET PO (09:21)
[2022-03-16] MEDS: SPIRONOLACTONE 25 MG TABLET PO (09:21)
[2022-03-16] MEDS: APIXABAN 5 MG TABLET PO ×2 (09:21→20:37)
[2022-03-16] MEDS: SACUBITRIL/VALSARTAN 24-26 MG TABLET 1 TAB PO ×2 (09:22→20:38)
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
--- NOTE | 2022-03-16 12:47 | PM.PNCARD ---
Progress Note: A&P Assessment and Plan (1) Atrial fibrillation with rapid ventricular response: Code(s): I48.91 - Unspecified atrial fibrillation Status: Acute Assessment and Plan: New onset.? Rate control strategy being pursued initially, however, heart rate remains poorly controlled. Heart rate suboptimally controlled with metoprolol 75 mg Q 8h.? Additional adjustments based on heart rate and BP.? Once heart rate controlled attempt to transition to Toprol XL equivalent dosing.? NPO after midnight for ELIZABETH guided cardioversion in attempt restore sinus rhythm prior to discharge. Patient absolutely must be compliant with medications, systemic anticoagulation. Patient verbalized understanding and agrees. Risks, benefits, alternatives with ELIZABETH guided cardioversion explained. Patient agrees. All questions answered to his satisfaction. Continue Apixaban 5 mg b.i.d. (CHADSVASc score 2 for HTN, CHF) (2) Cardiomyopathy: Qualifiers: Cardiomyopathy type: alcoholic Qualified Code(s): I42.6 - Alcoholic cardiomyopathy Code(s): I42.9 - Cardiomyopathy, unspecified Status: Acute Assessment and Plan: New diagnosis.? EF 30 - 35%.? Etiology unknown but probably secondary to chronic alcohol abuse, ? tachycardia induced.? No ischemic symptoms but cannot exclude ischemic etiology. Continue GDMT with Entresto, spironolactone, BB.? Would add Jardiance 10 mg daily if able to obtain. Can consider adding Jardiance when volume status is stable Fitted with LifeVest for sudden cardiac prevention. Monitor renal function and electrolytes with daily BMP (3) Acute exacerbation of CHF (congestive heart failure): Qualifiers: Heart failure type: combined systolic and diastolic Qualified Code(s): I50.43 - Acute on chronic combined systolic (congestive) and diastolic (congestive) heart failure Code(s): I50.9 - Heart failure, unspecified Status: Acute Assessment and Plan: Worsening symptoms of orthopnea, dyspnea, and swelling over the past 2 weeks.? Echo showing reduced LV systolic function with EF 30 - 35% and some RV dysfunction as well.? Continue IV diuresis although appearing euvolemia.? Anticipate transition to oral Lasix his symptoms controlled tomorrow morning. 1500cc fluid restriction Daily weights Compression stockings Low Na diet Doing much better overall. Appears relatively euvolemic. Change to Lasix 40 mg daily. Add Jardiance 10 mg daily (4) Continuous tobacco abuse: Code(s): Z72.0 - Tobacco use Status: Acute Assessment and Plan: Immediate and absolute smoking cessation counseling (5) Chronic alcohol abuse: Code(s): F10.10 - Alcohol abuse, uncomplicated Status: Acute Assessment and Plan: Counseled he must abstain from alcohol complicating LV dysfunction, heart failure and atrial fibrillation. Patient verbalized understanding and agrees. Subjective Date/time seen: Date of service: 03/16/22 12:47 Follow-up for CHF, cardiomyopathy, AFib with RVR Patient feeling much better overall. No fevers, chills, chest pain or palpitations. Denies shortness of breath. Remains in atrial fibrillation with RVR unfortunately heart rates generally in the 110s to 120 although improved from yesterday. Tolerating medications thus far. Review of Systems Review of Systems: All systems reviewed & are unremarkable except as noted in HPI and below Constitutional: Constitutional: Reports as per HPI and Reports no additional constitutional complaints Eyes: Eyes: Reports as per HPI and Reports no additional eye complaints ENT: Reports system reviewed and no additional complaints, except as documented and Reports as per HPI Cardiovascular: Cardiovascular: Reports as per HPI and Reports no additional cardiovascular complaints Respiratory: Respiratory: Reports as per HPI and Reports no additional respiratory complaints Gastrointestinal: Ga
[2022-03-17] VITALS (30 sets, daily range): BP systolic 79–139; BP diastolic 61–101; PULSE 60–128; RESP 12–22; TEMP 36–36.9; O2SAT 93–100
[2022-03-17 06:00] LABS: Hematocrit 47.5 % (42.0-52.0); Hemoglobin 15.9 g/dL (14.0-18.0); Mean Corpuscular HGB Conc 33.5 g/dl (32-36); Mean Corpuscular Hemoglobin 31.7 pg (26-34); Mean Corpuscular Volume 94.6 fl (80-100); Mean Platelet Volume 9.9 fl (7.4-10.4); Platelet Count Result 324 k/mm3 (150-375); Red Blood Count 5.02 M/mm3 (4.6-6.20); Red Cell Distribution Width 13.7 % (11.5-14.5); White Blood Count 10.8 K/mm3 (4.5-10.0)
[2022-03-17] MEDS: METOPROLOL TARTRATE 25 MG TABLET 75 MG PO ×3 (06:04→20:45)
[2022-03-17 06:12] LABS: Alanine Aminotransferase 35 U/L (6-50); Albumin Level 3.9 g/dL (3.5-5.1); Alkaline Phosphatase 60 U/L (38-126); Anion Gap 9 mmol/L (8-16); Aspartate Amino Transferase 38 U/L (17-59); Bilirubin,Total 0.8 mg/dL (0.2-1.3); Blood Urea Nitrogen 27 mg/dL (9-20); Calcium 8.4 mg/dL (8.4-10.2); Carbon Dioxide 28 mmol/L (22-30); Chloride 102 mmol/L (98-107); Estimated CRCL calculation 94 ml/min; Estimated Glomerular Filt Rate > 60; Glucose 100 mg/dL (65-110); Potassium 3.7 mmol/L (3.4-5.0); Sodium 139 mmol/L (137-145)
[2022-03-17] MEDS: APIXABAN 5 MG TABLET PO ×2 (08:46→20:45)
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
--- NOTE | 2022-03-17 09:37 | WPDTECDV ---
ELIZABETH with Cardioversion Date of procedure: 03/17/22 Procedure Type: 1. Multiplanar transesophageal echocardiography with color flow and pulse wave Doppler 2. Agitated saline study 3. Electrical cardioversion 4. Moderate sedation Diagnosis: Atrial fibrillation Indications: Atrial fibrillation Description of Procedure: After discussing the risks, benefits and alternatives of the procedure patient agreeable via verbal and written informed consent. Risks discussed included esophageal rupture or perforation, , adverse reaction to anesthesia, stroke, bleeding, pain, infection, skin irritation or burn from defibrillator pads, shocking into more problematic heart rhythm. After in establishing continuous telemetry monitoring, pulse oxygenation serial blood pressure assessments, time-out was taken the procedure was initiated. Procedure start time 9:19 a.m. Procedure stop time 9:33 a.m. Complications: None Blood loss: None Medications were administered patient was monitored by Maria Alejandra Hightower RN Sedation: Hurricane spray to with hypopharynx x2 for topical anesthetic A total 6 mg of Versed and 100 mcg of fentanyl given in divided dosages Findings: ELIZABETH: LV is mildly dilated and severely reduced ejection fraction of 20% noted. Right ventricular function is also reduced but normal size. Moderate left atrial enlargement, mild right atrial enlargement. Left atrial appendage is clear of mass or thrombus. Pulsed wave Velocities of around 30 centimeters/second. No pericardial effusion. Normal-sized aortic root with mild atherosclerotic disease seen within the aorta. Atrial septum is intact with negative agitated saline study. Mitral valve is normal with vtqz-er-[id number] mitral regurgitation. The aortic valve is trileaflet and normal with trivial aortic insufficiency. Tricuspid valve is normal with mild tricuspid regurgitation. Pulmonic valve is also normal with mild pulmonic regurgitation. Cardioversion: 200 joules of synchronized biphasic energy was used which initially converted him to sinus rhythm but he quickly reverted back into atrial fibrillation. Patient was still sedated and atrial fibrillation was confirmed and another 200 joules of synchronized biphasic energy was used which did convert the patient into sinus rhythm for which he remained to this point. Conclusion: 1. Severe LV dysfunction with ejection fraction 20% 2. Biatrial enlargement 3. Pdkp-wo-xjrrucmv mitral regurgitation 4. No left atrial appendage mass or thrombus 5. Intact atrial septum 6. Moderate sedation 7. Successful electric cardioversion using 200 joules of synchronized biphasic energy x2
--- NOTE | 2022-03-17 10:00 | ECG_ITS ---
Measurements Intervals [place] Rate: 103 P: MI: 0 QRS: 49 QRSD: 67 T: 210 QT: 313 QTc: 411 Interpretive Statements ATRIAL FIBRILLATION WITH RAPID VENTRICULAR RESPONSE VENTRICULAR PREMATURE COMPLEXES DELAYED PRECORDIAL R/S TRANSITION BORDERLINE T WAVE ABNORMALITY- DIFFUSE LEADS ABNORMAL ECG Electronically Signed On 03-17-2022 8:51:49 CDT by Magdaleno Tavera D.O.
--- NOTE | 2022-03-17 10:26 | SUR.PHASEII ---
report called to [facility] imu nurse. patient is alert but drowsy. able to follow commands and a/ox3. dr mariee aware of patient bp systolic of 80s. patient place back on lifevest and tele monitor and transferred to with steady gait and transferred back to room 205
--- NOTE | 2022-03-17 11:00 | ECG_ITS ---
Measurements Intervals [place] Rate: 67 P: 72 NH: 170 QRS: 70 QRSD: 67 T: 182 QT: 375 QTc: 396 Interpretive Statements SINUS RHYTHM FREQUENT VENTRICULAR PREMATURE COMPLEXES LEFT ATRIAL ENLARGEMENT BORDERLINE R WAVE PROGRESSION, ANTERIOR LEADS T WAVE ABNORMALITY IN ANTEROLATERAL LEADS- CONSIDER ISCHEMIA ABNORMAL ECG Electronically Signed On 03-17-2022 9:59:25 CDT by Magdaleno Tavera D.O.
[2022-03-17] MEDS: FOLIC ACID 1 MG TABLET PO (11:07)
[2022-03-17] MEDS: SPIRONOLACTONE 25 MG TABLET PO (11:07)
[2022-03-17] MEDS: THIAMINE HCL 100 MG TABLET PO (11:07)
[2022-03-17] MEDS: FUROSEMIDE 40 MG TABLET PO (11:07)
[2022-03-17] MEDS: EMPAGLIFLOZIN 10 MG TABLET PO (11:07)
--- NOTE | 2022-03-17 12:25 | PM.CNGS ---
Assessment and Plan Assessment and plan (1) Abnormal gallbladder ultrasound: Code(s): R93.2 - Abnormal findings on diagnostic imaging of liver and biliary tract Status: Acute Assessment and Plan: The abnormal findings of the gallbladder on his ultrasound are incidental findings. He is completely asymptomatic and does not have any evidence of acute cholecystitis. He is not having any abdominal pain and has been tolerating a diet. His abdominal exam is benign. Okay from our standpoint to advance his diet as tolerated. No indication for surgical intervention. If he begins to have symptoms that suggest cholecystitis, then we could re-evaluate him at that time. He has multiple co-morbidities that would increase his risks for surgery, including the need for uninterrupted anticoagulation following his cardioversion today. Thank you for allowing us to see the patient in consultation. (2) Cardiomyopathy: Qualifiers: Cardiomyopathy type: alcoholic Qualified Code(s): I42.6 - Alcoholic cardiomyopathy Code(s): I42.9 - Cardiomyopathy, unspecified Status: Acute (3) Chronic alcohol abuse: Code(s): F10.10 - Alcohol abuse, uncomplicated Status: Acute (4) Atrial fibrillation with rapid ventricular response: Code(s): I48.91 - Unspecified atrial fibrillation Status: Acute (5) Acute exacerbation of CHF (congestive heart failure): Qualifiers: Heart failure type: combined systolic and diastolic Qualified Code(s): I50.43 - Acute on chronic combined systolic (congestive) and diastolic (congestive) heart failure Code(s): I50.9 - Heart failure, unspecified Status: Acute (6) Continuous tobacco abuse: Code(s): Z72.0 - Tobacco use Status: Acute Plan I have discussed the patient's case and plan of care with Dr. Quintero. History of Present Illness Consult details Consult date: 03/17/22 Reason for consult: other (Possible acute cholecystitis) Requesting physician: Vega Quintero DO Narrative: This is a 56-year-old man with a history of tobacco abuse, heavy alcohol use, and hypertension, who presented to [facility] for evaluation of shortness of breath. He complained of leg swelling, orthopnea, and dyspnea for over a week. He also endorses abdominal bloating over the past few months. He feels like his abdomen gets tight and he does have some very mild discomfort in the lower abdomen, but had attributed this to the bloating. Denies any nausea, vomiting, upper abdominal pain, or changes in his bowel habits. [place] [address], mild troponin elevation, and proBNP of 10,000. D-dimer also elevated. Chest CTA negative for PE. He was found to be in AFib RVR. No known history of atrial fibrillation. He was then directly admitted to [facility] for further evaluation and treatment He has been treated for the CHF exacerbation and atrial fibrillation. He was also started on Eliquis for his AFib. Due to his alcohol abuse, he had a right upper quadrant ultrasound to evaluate his liver, which showed hepatic steatosis This also incidentally showed gallbladder wall thickening and trace pericholecystic fluid, no visible gallstones, no De Santiago sign, but suggested possible acalculous cholecystitis. LFTs have been monitored and are normal. WBC is 10,800 today. Our service has been consulted for evaluation of possible acute cholecystitis. He is now seen in the IMU. Cardiology is following the patient and decided to proceed with a ELIZABETH cardioversion today, which was successful. This showed an EF of 20%. They have also ordered a life vest for the patient, which he is now wearing. Today, he denies any abdominal pain, nausea, or vomiting. He denies having any abdominal pain during his hospitalization. He states prior to the ELIZABETH cardioversion, he was tolerating his diet without any issues. No other complaints at this time. No previous abdominal mary carmen
--- NOTE | 2022-03-17 13:10 | PC.NURSE ---
notified yovana caicedo NP of low blood pressure 94/75. Verbal order to hold AM dose.
[2022-03-17] MEDS: SACUBITRIL/VALSARTAN 24-26 MG TABLET 1 TAB PO (20:45)
[2022-03-18] VITALS (14 sets, daily range): BP systolic 91–113; BP diastolic 61–87; PULSE 74–94; RESP 16–22; TEMP 36.3–36.8; O2SAT 92–99
[2022-03-18] MEDS: METOPROLOL TARTRATE 25 MG TABLET 75 MG PO ×2 (05:24→15:44)
--- NOTE | 2022-03-18 08:55 | PM.PNCARD ---
Progress Note: A&P Assessment and Plan (1) Atrial fibrillation with rapid ventricular response: Code(s): I48.91 - Unspecified atrial fibrillation <TIFFANY Bryan - Last Filed: 03/18/22 09:37> Status: Acute <TIFFANY Bryan - Last Filed: 03/18/22 09:37> Assessment and Plan: New onset.? Rate control strategy being pursued initially, however, heart rate remains poorly controlled. Heart rate suboptimally controlled with metoprolol 75 mg Q 8h.? Additional adjustments based on heart rate and BP.? Once heart rate controlled attempt to transition to Toprol XL equivalent dosing.? S/p DCCV yesterday with lutheran of sinus rhythm. Telemetry continues to show NSR with some PVC's, PAC's Continue Apixaban 5 mg b.i.d. (CHADSVASc score 2 for HTN, CHF) <TIFFANY Bryan - Last Filed: 03/18/22 09:37> (2) Cardiomyopathy: Qualifiers: Cardiomyopathy type: alcoholic Qualified Code(s): I42.6 - Alcoholic cardiomyopathy <TIFFANY Bryan - Last Filed: 03/18/22 09:37> Code(s): I42.9 - Cardiomyopathy, unspecified <TIFFANY Bryan - Last Filed: 03/18/22 09:37> Status: Acute <TIFFANY Bryan - Last Filed: 03/18/22 09:37> Assessment and Plan: New diagnosis.? EF 30 - 35%.? Etiology unknown but probably secondary to chronic alcohol abuse, ? tachycardia induced.? No ischemic symptoms but cannot exclude ischemic etiology. Continue GDMT with Entresto, spironolactone, BB, SGLT2 inhibitor Fitted with LifeVest for sudden cardiac prevention. Monitor renal function and electrolytes with daily BMP <TIFFANY Bryan - Last Filed: 03/18/22 09:37> (3) Acute exacerbation of CHF (congestive heart failure): Qualifiers: Heart failure type: combined systolic and diastolic Qualified Code(s): I50.43 - Acute on chronic combined systolic (congestive) and diastolic (congestive) heart failure <TIFFANY Bryan - Last Filed: 03/18/22 09:37> Code(s): I50.9 - Heart failure, unspecified <TIFFANY Bryan - Last Filed: 03/18/22 09:37> Status: Acute <TIFFANY Bryan - Last Filed: 03/18/22 09:37> Assessment and Plan: Worsening symptoms of orthopnea, dyspnea, and swelling over the past 2 weeks.? Echo showing reduced LV systolic function with EF 30 - 35% and some RV dysfunction as well.? Continue IV diuresis although appearing euvolemia.? Anticipate transition to oral Lasix his symptoms controlled tomorrow morning. 1500cc fluid restriction Daily weights Compression stockings Low Na diet Doing much better overall. Appears relatively euvolemic. On p.o. diuretic at this point OK for discharge today from a cardiac standpoint. <TIFFANY Bryan - Last Filed: 03/18/22 09:37> (4) Continuous tobacco abuse: Code(s): Z72.0 - Tobacco use <TIFFANY Bryan - Last Filed: 03/18/22 09:37> Status: Acute <TIFFANY Bryan - Last Filed: 03/18/22 09:37> Assessment and Plan: Immediate and absolute smoking cessation counseling <TIFFANY Bryan - Last Filed: 03/18/22 09:37> (5) Chronic alcohol abuse: Code(s): F10.10 - Alcohol abuse, uncomplicated <TIFFANY Bryan - Last Filed: 03/18/22 09:37> Status: Acute <TIFFANY Bryan - Last Filed: 03/18/22 09:37> Assessment and Plan: Counseled he must abstain from alcohol complicating LV dysfunction, heart failure and atrial fibrillation. Patient verbalized understanding and agrees. <TIFFANY Bryan - Last Filed: 03/18/22 09:37> Additional Plan I discussed the patient management. I reviewed Pam Sadler's note and agree with findings and plan of care as documented in the note. <Meño Kiser MD - Last Filed: 03/18/22 12:12> Time Spent With Patient Time with patient: 15 - 25 minutes <Meño Kiser MD - Last Filed: 03/18/22 12:12> Subjective Date/time seen: 0
[2022-03-18 09:17] LABS: Basophils Absolute Auto 0.1 K/mm3 (0.0-0.1); Basophils Percent Auto 1.2 % (0.2-1.2); Eosinophils Absolute Auto 0.2 K/mm3 (0-0.3); Eosinophils Percent Auto 1.8 % (0-4.4); Hematocrit 48.5 % (42.0-52.0); Hemoglobin 15.5 g/dL (14.0-18.0); Immature Granulocyte Absolute 0.03 K/mm3 (0.00-0.031); Immature Granulocyte Percent A 0.3 % (0-0.5); Lymphocytes Absolute Auto 2.35 K/mm3 (0.9-3.2); Lymphocytes Percent Auto 20.6 % (18.3-44.2); Mean Corpuscular Hemoglobin 31.3 pg (26-34); Mean Platelet Volume 10.1 fl (7.4-10.4); Monocytes Absolute Auto 1.7 K/mm3 (0.1-0.6); Monocytes Percent Auto 14.7 % (2.6-8.5); Neutrophils Percent Auto 61.4 % (45.5-73.1); Platelet Count Result 314 k/mm3 (150-375); Red Blood Count 4.95 M/mm3 (4.6-6.20); Red Cell Distribution Width 13.8 % (11.5-14.5); White Blood Count 11.4 K/mm3 (4.5-10.0)
[2022-03-18 09:46] LABS: Anion Gap 12 mmol/L (8-16); Blood Urea Nitrogen 32 mg/dL (9-20); Calcium 9.4 mg/dL (8.4-10.2); Carbon Dioxide 23 mmol/L (22-30); Chloride 105 mmol/L (98-107); Estimated CRCL calculation 85 ml/min; Estimated Glomerular Filt Rate > 60; Glucose 106 mg/dL (65-110); Potassium 4.9 mmol/L (3.4-5.0); Sodium 140 mmol/L (137-145)
[2022-03-18] MEDS: EMPAGLIFLOZIN 10 MG TABLET PO (09:56)
[2022-03-18] MEDS: FUROSEMIDE 40 MG TABLET PO (09:56)
[2022-03-18] MEDS: SACUBITRIL/VALSARTAN 24-26 MG TABLET 1 TAB PO (09:56)
[2022-03-18] MEDS: FOLIC ACID 1 MG TABLET PO (09:57)
[2022-03-18] MEDS: THIAMINE HCL 100 MG TABLET PO (09:57)
[2022-03-18] MEDS: SPIRONOLACTONE 25 MG TABLET PO (09:57)
[2022-03-18] MEDS: APIXABAN 5 MG TABLET PO (09:57)
[2022-03-18 14:00] LABS: Magnesium 2.5 mg/dL (1.6-2.3)
--- NOTE | 2022-03-18 14:47 | PM.DS ---
DS: Admitting Diagnosis Discharge Date 03/18/22 Admitting Diagnosis Volume overload and new onset atrial fibrillation DS: Discharge Diagnosis Discharge Diagnosis (1) Atrial fibrillation with rapid ventricular response: Code(s): I48.91 - Unspecified atrial fibrillation Status: Acute Assessment and Plan: Continues to have atrial fibrillation with RVR. Has had diltiazem ggt off. Persistent tachycardia could be related to alcohol withdrawal. S/p cardioversion on 03/17/22 still in sinus and doing better. -Apixaban 5 mg BID -Increase metoprolol to 50 mg po daily -Appreciate Cardiology recommendations (2) Acute exacerbation of CHF (congestive heart failure): Qualifiers: Heart failure type: combined systolic and diastolic Qualified Code(s): I50.43 - Acute on chronic combined systolic (congestive) and diastolic (congestive) heart failure Code(s): I50.9 - Heart failure, unspecified Status: Acute Assessment and Plan: EF 30-35% with dilated LV, enlarged RV, mild pulmonic regurgitation. Appears euvolemic. -Spironolactone -Metoprolol 50 mg po daily -Entresto -Frusemide 40 mg po daily -Patient wearing lifevest (3) Abnormal gallbladder ultrasound: Code(s): R93.2 - Abnormal findings on diagnostic imaging of liver and biliary tract Status: Acute Assessment and Plan: Last week prior to the weekend patient reported abdominal tightness with some pain. Liver US shows hepatic steatosis with possible acalculous cholecystitis. General surgery does not recommend intervention at this time as the patient is asymptomatic with no signs of infection. (4) Elevated troponin: Code(s): R77.8 - Other specified abnormalities of plasma proteins Status: Acute Assessment and Plan: Troponin flat. Likely elevated due to demand ischemia w/ elevated heart rate w/ atrial fibrillation with rvr. Appreciate recommendations from cardiology. (5) Chronic alcohol abuse: Code(s): F10.10 - Alcohol abuse, uncomplicated Status: Acute Assessment and Plan: CIWA protocol. LFTs normal. Liver ultrasound with hepatic steatosis. AFP pending at the time of discharge. LFTs normalized by 03/17/22. (6) Continuous tobacco abuse: Code(s): Z72.0 - Tobacco use Status: Acute Assessment and Plan: Nicotine patch (7) Excessive daytime sleepiness: Code(s): G47.19 - Other hypersomnia Status: Acute Assessment and Plan: Awake and alert. May need outpatient sleep study. DS: Summary Hospital Course Reason for hospitalization: Acute CHF exacerbation and atrial fibrillation with rapid ventricular rate Hospital Course: 56M with a past medical history of tobacco abuse, alcohol abuse, hypertension who presented to the emergency department in [place] due to shortness of breath. Patient was transferred to [facility] IMU for volume overload and atrial fibrillation with rapid ventricular response. BNP was 10,568. Furosemide 40 mg IV twice a day was given for diuresis. Echo showed EF 30-35% with dilated LV & RV and biatrial enlargement. Cardiology was consulted and anticoagulation was started. Metoprolol was used to try and convert patient to sinus rhythm, but he was persistently in atrial fibrillation. Patient was taken for successful cardioversion on 03/17/22. Patient was originally planned to be discharged on home dose of metoprolol er 25 mg daily, but patient had an episode of NSVT prior to discharge. Potassium was 4.8. Metoprolol er increased to 50 mg daily for discharge after discussion with Cardiology. Patient discharged with entresto and jardiance. Patient was fitted with life vest and discharged to home. Time Spent with Patient Time attestation: Total time spent providing and/or coordinating discharge services: Exam Narrative: GENERAL: thuan RINCON
[2022-03-22 14:57] LABS: Alpha Fetoprotein Tumor Marker 4.2 ng/mL (<6.1)
== END 2022-03-18 16:40 | disposition home or self-care (01) | DRG 308 ==
PROVIDERS: Internal Medicine; Internal Medicine Cardiovascular Disease; Nurse Practitioner; Admitting Provider Internal Medicine; PCP Internal Medicine; Visit Provider Family Medicine
PROC: B24BZZ4 Ultrasonography of Heart with Aorta, Transesophageal (ICD-10-PCS; CPT 93312; principal; 2022-03-17 09:00)
PROC: 5A2204Z Restoration of Cardiac Rhythm, Single (ICD-10-PCS; 2022-03-17 09:00)
DX: I48.19 Other persistent atrial fibrillation (principal); I50.43 Acute on chronic combined systolic (congestive) and diastolic (congestive) heart failure; I24.8 Other forms of acute ischemic heart disease; F10.239 Alcohol dependence with withdrawal, unspecified; K81.0 Acute cholecystitis; I11.0 Hypertensive heart disease with heart failure; I42.6 Alcoholic cardiomyopathy; G47.19 Other hypersomnia; J44.9 Chronic obstructive pulmonary disease, unspecified; R00.0 Tachycardia, unspecified; K76.0 Fatty (change of) liver, not elsewhere classified; F17.210 Nicotine dependence, cigarettes, uncomplicated
CPT/HCPCS: 36415; 76705; 80048; 80053; 80061; 82105; 82607; 82746; 83735; 84100; 84443; 84484; 85025; 85027; 92960; 93005; 93312; 93320; 93325; 96372; 96374; 96375; 96376; A9270; C8929; G0378; J1650; J1940; J2250; J3010; J7040; Q9957

== ENCOUNTER 2022-04-09 10:14 | Observation (INO) | payer OTHER, SELFPAY ==
[2022-04-09] VITALS (45 sets, daily range): BP systolic 115–146; BP diastolic 59–113; PULSE 88–162; RESP 11–23; TEMP 36.5–36.6; O2SAT 90–100; BMI 25.9
--- NOTE | ~2022-04-09 | XR_ITS ---
EXAMINATION: XR chest 2V 04/09/2022 11:03 INDICATION: Hypertension. Atrial fibrillation. PROCEDURE: 2 view chest COMPARISON: Comparison to multiple prior studies sequentially, with oldest reviewed study dated 07/25 2. FINDINGS: The lungs are clear. The cardiomediastinal silhouette is within normal limits. There are no pleural effusions. There is no pneumothorax suspected. There are multiple healed right rib fract ures. IMPRESSION: 1: NO ACUTE CARDIOPULMONARY DISEASE. Reviewed, dictated and finalized at location B.
--- NOTE | 2022-04-09 10:14 | ECG_ITS ---
Measurements Intervals [place] Rate: 171 P: CA: 0 QRS: 55 QRSD: 71 T: 41 QT: 252 QTc: 426 Interpretive Statements ATRIAL FIBRILLATION WITH RAPID VENTRICULAR RESPONSE ABNORMAL ECG COMPARED TO ECG 03/17/2022 09:36:54 ATRIAL FIBRILLATION NOW PRESENT Electronically Signed On 04-09-2022 10:52:28 CDT by Bryan Clifton M.D.
--- NOTE | 2022-04-09 10:22 | PC.NURSE ---
EDP at bedside to assess pt.
[2022-04-09] MEDS: METOPROLOL TARTRATE INJ 5 MG/5 ML VIAL IV PUSH ×2 (10:38→11:34)
[2022-04-09] MEDS: ASPIRIN 81 MG CHEWABLE TABLET 324 MG PO (10:38)
[2022-04-09 10:47] LABS: Basophils Absolute Auto 0.1 K/mm3 (0.0-0.1); Basophils Percent Auto 0.6 % (0.2-1.2); Eosinophils Absolute Auto 0.1 K/mm3 (0-0.3); Eosinophils Percent Auto 0.6 % (0-4.4); Hematocrit 53.2 % (42.0-52.0); Hemoglobin 18.3 g/dL (14.0-18.0); Immature Granulocyte Absolute 0.04 K/mm3 (0.00-0.031); Immature Granulocyte Percent A 0.3 % (0-0.5); Lymphocytes Absolute Auto 1.17 K/mm3 (0.9-3.2); Lymphocytes Percent Auto 9.4 % (18.3-44.2); Mean Corpuscular HGB Conc 34.4 g/dl (32-36); Mean Corpuscular Hemoglobin 31.1 pg (26-34); Mean Corpuscular Volume 90.5 fl (80-100); Mean Platelet Volume 9.3 fl (7.4-10.4); Monocytes Absolute Auto 1.3 K/mm3 (0.1-0.6); Monocytes Percent Auto 10.6 % (2.6-8.5); Neutrophils Absolute Auto 9.7 K/mm3 (1.3-6.7); Neutrophils Percent Auto 78.5 % (45.5-73.1); Platelet Count Result 232 k/mm3 (150-375); Red Blood Count 5.88 M/mm3 (4.6-6.20); Red Cell Distribution Width 13.8 % (11.5-14.5); White Blood Count 12.4 K/mm3 (4.5-10.0)
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
[2022-04-09 10:56] LABS: INR 1.2; Prothrombin Time 14.5 Seconds (11.1-14.7)
[2022-04-09 11:02] LABS: Alanine Aminotransferase 20 U/L (6-50); Albumin Level 5.1 g/dL (3.5-5.1); Alkaline Phosphatase 74 U/L (38-126); Anion Gap 11 mmol/L (8-16); Aspartate Amino Transferase 32 U/L (17-59); Bilirubin,Total 1.1 mg/dL (0.2-1.3); Blood Urea Nitrogen 13 mg/dL (9-20); Calcium 9.6 mg/dL (8.4-10.2); Carbon Dioxide 30 mmol/L (22-30); Chloride 87 mmol/L (98-107); Estimated CRCL calculation 82 ml/min; Estimated Glomerular Filt Rate > 60; Glucose 107 mg/dL (65-110); Lipase 106 U/L (23-300); Potassium 5.3 mmol/L (3.4-5.0); Sodium 128 mmol/L (137-145)
[2022-04-09 11:13] LABS: Troponin I 0.013 ng/mL (0.000-0.034)
[2022-04-09] MEDS: METOPROLOL TARTRATE 50 MG TAB PO (11:34)
[2022-04-09] MEDS: LACTATED RINGERS 1,000 ML 999 ML IV CONT (13:23)
[2022-04-09 13:50] LABS: Troponin I < 0.012 ng/mL (0.000-0.034)
--- NOTE | 2022-04-09 14:50 | PC.NURSE ---
MD aware of BP - no new orders received.
--- NOTE | 2022-04-09 14:58 | ADMGEN ---
This patient, Db Carbajal, was admitted to IMU Room 214-01. Patient/family oriented to hospital policies and general routines including ID bracelet, bed and alarms, visiting hours, pain management, procedures, bathroom and other care routines, personal items, smoking policy, room service/diet, and visiting hours. Information on how to activate the Rapid Response Team has been discussed. Patient/Family are encouraged to report perceived risks to care and to ask questions if they do not understand what they are told or what they should do.
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
--- NOTE | 2022-04-09 15:30 | PM.CNCAR ---
Assessment and Plan Assessment and plan (1) Chronic anticoagulation: Code(s): Z79.01 - correction (current) use of anticoagulants Status: Acute Assessment and Plan: Continue Eliquis. He states that he has not missed any doses since cardioversion (2) Heart failure with reduced ejection fraction and diastolic dysfunction: Code(s): I50.40 - Unspecified combined systolic (congestive) and diastolic (congestive) heart failure Status: Acute Assessment and Plan: Continue Entresto, metoprolol, spironolactone, furosemide (3) Atrial fibrillation with rapid ventricular response: Code(s): I48.91 - Unspecified atrial fibrillation Status: Acute Assessment and Plan: Continue metoprolol. Continue Eliquis. Will keep NPO after midnight for a cardioversion tomorrow. He has not missed any doses of Eliquis since I last cardioverted him several weeks ago. He will not need a ELIZABETH therefore. I will start him on some amiodarone overnight with 150 mg IV bolus and standard drip per protocol. Given his alcohol use, amiodarone is likely not a great long-term choice however. I also talked him about alcohol abuse and its relation with cardiomyopathy and atrial fibrillation. He is going to continue to try to cut back on his alcohol use. Will keep NPO after midnight. Basic metabolic panel and magnesium level in the morning. (4) Chronic alcohol abuse: Code(s): F10.10 - Alcohol abuse, uncomplicated Status: Acute Assessment and Plan: As detailed above. Counseling performed (5) Cardiomyopathy: Qualifiers: Cardiomyopathy type: alcoholic Qualified Code(s): I42.6 - Alcoholic cardiomyopathy Code(s): I42.9 - Cardiomyopathy, unspecified Status: Acute Assessment and Plan: Likely from atrial fibrillation but cannot exclude a combination of other things including alcohol use History of Present Illness History of Present Illness Consult date/time: 04/09/22 15:30 Requesting physician: Quynh Aguilar MD Consult reason: atrial fibrillation Reason For Visit: afib rvr Narrative: Date of service 04/09/2022 Reason consultation atrial fibrillation with rapid ventricular response Requesting provider: Dr. Aguilar History: Patient is a 56-year-old male who has a history of atrial fibrillation. He was recently in this hospital as diagnosed with a cardiomyopathy, atrial fibrillation, heart failure and chronic alcohol use. I did perform a ELIZABETH guided cardioversion on him which was successful. He was discharged home and was seen in the office today in follow-up by Pam Sadler. He was found to be back in atrial fibrillation with rapid ventricular response the heart rate of 170. He does not know he is in atrial fibrillation. He does not feel palpitations. He actually has been feeling fine and denying any chest pain, shortness breath, syncope, presyncope, paroxysmal nocturnal dyspnea, orthopnea, edema or palpitations. He is still drinking in excess. He will drink 8-10 beers at a time usually about 4 days per week Review of Systems Review of Systems: All systems reviewed & are unremarkable except as noted in HPI and below Constitutional: Constitutional: Denies body ache(s) Eyes: Eyes: Denies blurry vision ENT: Reports Normal hearing present Cardiovascular: Cardiovascular: Denies diaphoresis Respiratory: Respiratory: Denies dyspnea Gastrointestinal: Gastrointestinal: Denies abdominal pain Genitourinary: Genitourinary: Denies hematuria Musculoskeletal: Musculoskeletal: Denies back pain Integumentary/Breasts: Skin/Breast: Denies dry skin Neurologic: Denies Abnormal speech present Psychiatric: Psychiatric: Denies confusion Endocrine: Endocrine: Denies excessive sweating Hematologic/Lymphatic: Hematologic/Lymphatic: Denies easy bleeding Allergic/Immunologic: Allergic/Immunologic: Denies GI upset with certain foods PMFSH Past Medical History Medical H
[2022-04-09] MEDS: AMIODARONE 150 MG/D5W 100 ML 150 MG/100 ML BAG 600 MG IV CONT (16:10)
[2022-04-09] MEDS: AMIODARONE 360 MG/D5W 200 ML 360 MG/200 ML BAG 33.33 MG IV CONT (16:24)
--- NOTE | 2022-04-09 16:51 | SUR.PREOP ---
Dr. Clifton paged at [phone] asked for a call back. Patient does not appear to have anticoagulation ordered on his OCT.
[2022-04-09 18:13] LABS: Anion Gap 11 mmol/L (8-16); Blood Urea Nitrogen 16 mg/dL (9-20); Calcium 9.5 mg/dL (8.4-10.2); Carbon Dioxide 25 mmol/L (22-30); Chloride 92 mmol/L (98-107); Estimated CRCL calculation 92 ml/min; Estimated Glomerular Filt Rate > 60; Glucose 104 mg/dL (65-110); Magnesium 2.1 mg/dL (1.6-2.3); Potassium 5.1 mmol/L (3.4-5.0); Sodium 128 mmol/L (137-145)
[2022-04-09] MEDS: SACUBITRIL/VALSARTAN 24-26 MG TABLET 1 TAB PO (20:38)
[2022-04-09] MEDS: APIXABAN 5 MG TABLET PO (20:39)
[2022-04-09] MEDS: AMIODARONE 360 MG/D5W 200 ML 360 MG/200 ML BAG 16.67 MG IV CONT (22:09)
[2022-04-10] VITALS (20 sets, daily range): BP systolic 97–135; BP diastolic 65–109; PULSE 58–124; RESP 12–20; TEMP 36.4–37.3; O2SAT 94–100
[2022-04-10 05:30] LABS: Anion Gap 10 mmol/L (8-16); Blood Urea Nitrogen 22 mg/dL (9-20); Calcium 9.1 mg/dL (8.4-10.2); Carbon Dioxide 30 mmol/L (22-30); Chloride 90 mmol/L (98-107); Estimated CRCL calculation 74 ml/min; Estimated Glomerular Filt Rate > 60; Glucose 107 mg/dL (65-110); Magnesium 2.2 mg/dL (1.6-2.3); Potassium 4.5 mmol/L (3.4-5.0); Sodium 130 mmol/L (137-145)
--- NOTE | 2022-04-10 08:00 | ECG_ITS ---
Measurements Intervals [place] Rate: 58 P: 20 UT: 176 QRS: -9 QRSD: 70 T: -1 QT: 457 QTc: 453 Interpretive Statements SINUS BRADYCARDIA POSSIBLE LEFT ATRIAL ENLARGEMENT [-0.1mV P WAVE IN V1/V2] POSSIBLE LEFT VENTRICULAR HYPERTROPHY [VOLTAGE CRITERIA PLUS LAE OR QRS WIDENING] INFERIOR MYOCARDIAL INFARCTION , OF INDETERMINATE AGE [40+ ms Q WAVE AND/OR ST/T ABNORMALITY IN II/aVF] NONSPECIFIC T-WAVE ABNORMALITY ABNORMAL ECG COMPARED TO ECG 04/10/2022 08:23:17 SINUS BRADYCARDIA NOW PRESENT Electronically Signed On 04-10-2022 13:55:17 CDT by Bryan Clifton M.D.
[2022-04-10] MEDS: APIXABAN 5 MG TABLET PO (08:04)
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
--- NOTE | 2022-04-10 09:26 | P.PCNCVR_ITS ---
Cardioversion Cardioversion Date of procedure: 04/10/22 Procedure: Electrical cardioversion Moderate sedation Pre-op diagnosis: Atrial fibrillation Post-op diagnosis: Same Indications: Atrial fibrillation Description of procedure: After discussing risks, benefits alternatives of procedure patient agreeable via verbal and written informed consent. Risks discussed included stroke, skin irritation or burn, shocking into more problematic heart rhythm. Also risk of anesthesia. After time-out was taken and serial blood pressure assessments, pulse oxygenation and telemetry monitoring was established, procedure was initiated. Procedure start time 9:13 a.m. Procedure stop time 9:25 a.m. Total of 6 mg of Versed and 100 mcg of fentanyl given in divided dosages Medications were administered patient was monitored by Roland Draper RN Complications: None Blood loss: None Sedation: As above Findings: 200 joules of biphasic synchronized energy was used to restore sinus rhythm from atrial fibrillation Two shocks were needed Conclusion: 1. Successful yarsani of sinus rhythm using 200 joules of biphasic synchronized energy x2 2. Moderate sedation
[2022-04-10] MEDS: AMIODARONE 360 MG/D5W 200 ML 360 MG/200 ML BAG 16.67 MG IV CONT (10:12)
--- NOTE | 2022-04-10 10:15 | ECG_ITS ---
Measurements Intervals [place] Rate: 116 P: NC: 0 QRS: 50 QRSD: 73 T: 59 QT: 326 QTc: 453 Interpretive Statements ATRIAL FIBRILLATION WITH RAPID VENTRICULAR RESPONSE ABNORMAL RHYTHM ECG COMPARED TO ECG 04/09/2022 10:27:07 NO SIGNIFICANT CHANGES Electronically Signed On 04-10-2022 9:40:14 CDT by Bryan Clifton M.D.
[2022-04-10] MEDS: FOLIC ACID 1 MG TABLET PO (12:48)
[2022-04-10] MEDS: FUROSEMIDE 40 MG TABLET PO (12:48)
[2022-04-10] MEDS: SACUBITRIL/VALSARTAN 24-26 MG TABLET 1 TAB PO (12:48)
[2022-04-10] MEDS: METOPROLOL SUCCINATE EXT REL 50 MG TABCR PO (12:48)
[2022-04-10] MEDS: OPTI-GEN TAB 1 TABLET PO (12:49)
[2022-04-10] MEDS: EMPAGLIFLOZIN 10 MG TABLET PO (12:49)
[2022-04-10] MEDS: THIAMINE HCL 100 MG TABLET PO (12:49)
--- NOTE | 2022-04-10 14:08 | PM.DS ---
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 Status: Acute (3) Heart failure with reduced ejection fraction and diastolic dysfunction: Code(s): I50.40 - Unspecified combined systolic (congestive) and diastolic (congestive) heart failure Status: Acute (4) Cardiomyopathy: Qualifiers: Cardiomyopathy type: alcoholic Qualified Code(s): I42.6 - Alcoholic cardiomyopathy Code(s): I42.9 - Cardiomyopathy, unspecified Status: Acute (5) Chronic alcohol abuse: Code(s): F10.10 - Alcohol abuse, uncomplicated Status: Acute (6) Tobacco dependence: Code(s): F17.200 - Nicotine dependence, unspecified, uncomplicated Status: Acute (7) Hyperkalemia: Code(s): E87.5 - Hyperkalemia Status: Acute (8) Hyponatremia: Code(s): E87.1 - Hypo-osmolality and hyponatremia Status: Acute DS: Summary Hospital Course Reason for hospitalization: 56yo male with alcoholism, pAFib and CHF here for AFib/RVR. Please see H&P for details Hospital Course: Patient was remarkably asymptomatic from the AFib/RVR aside from fatigue and shortness of breath. IV Lopressor brought his heart rate down to the 130s from the 170s and he was continued on p.o. metoprolol. Cardiology was consulted and IV amiodarone started. Patient states compliance with his apixaban and has not missed any doses. For his know sCHF, he appeared clinically compensated despite the AFib/RVR. We continued Entresto, metoprolol and furosemide. Potassium was elevated at 5.1 and sodium was 128. Because of the hyperkalemia, spironolactone was held. Repeat potassium normalized. The hyponatremia could be related to his medications and/or from his alcohol intake (up to 10 beers per day). Sodium level improved. He also smokes 1ppd and was educated about the benefits of abstaining from alcohol and all tobacco use. Patient was admitted and remained in AFib. He underwent cardioversion on 04/10/22 and was converted back to NSR. He tolerated this procedure well. Discussed with Cardiology who did not want to continue the Amiodarone. Patient did not have any signs or symptoms of alcohol withdrawal. Patient overall did well was able to discharge home on 04/10/2022. Status at Discharge Cognitive/behavioral status at discharge: Stable Time Spent with Patient Time attestation: Total time spent providing and/or coordinating discharge services: 35 minutes Time spent: Greater than 30 minutes Exam Narrative: AF 97.5 114/94 65 20 96% ra Gen - NARD Chest - CTA bilaterally, nml RR CV - RRR S1/S2. Telemetry showing normal sinus rhythm and PVCs Abd - Soft, NT/ND, Positive BS Ext - No pedal edema Neuro - Alert and oriented. Nonfocal exam. Psych - Nml mood and affect Skin - Warm and dry DS: Data Data Completed and Pending Labs on day of discharge: Labs from last 24 hours 04/10/22 04/10/22 04/09/22 04:59 04:59 17:46 Sodium 130 L 128 L Potassium 4.5 5.1 H Chloride 90 L 92 L Carbon Dioxide 30 25 Anion Gap 10 11 BUN 22 H 16 Creatinine 1.00 0.80 Estim Creat Clear Calc 74 92 Estimated GFR > 60 > 60 Glucose 107 104 Calcium 9.1 9.5 Magnesium 2.2 2.1 TSH (Reflex) 3.100 Discharge Plan Discharge Attending physician on discharge: Radu Castañeda Consulting providers: Bryan Clifton Discharging Clinician: Radu Castañeda Anticipated Discharge Date/Time: 04/10/22 14:25 Patient Disposition: Home, Self-Care Activity: as tolerated Diet: heart healthy Discharge Instructions: Avoid all products that contain nicotine. Avoid all alco
== END 2022-04-10 16:15 | disposition home or self-care (01) ==
LOC: ANHED 13:07 → ANHIMU 14:33
PROVIDERS: Internal Medicine Cardiovascular Disease; Physician Assistant; Admitting Provider Internal Medicine; Emergency Provider Emergency Medicine; PCP Internal Medicine; Visit Provider Internal Medicine
PROC: 5A2204Z Restoration of Cardiac Rhythm, Single (ICD-10-PCS; principal; 2022-04-10 10:00)
DX: I48.91 Unspecified atrial fibrillation (principal); I11.0 Hypertensive heart disease with heart failure; I50.41 Acute combined systolic (congestive) and diastolic (congestive) heart failure; J44.9 Chronic obstructive pulmonary disease, unspecified; I42.6 Alcoholic cardiomyopathy; F10.10 Alcohol abuse, uncomplicated; F17.210 Nicotine dependence, cigarettes, uncomplicated; E87.5 Hyperkalemia; E87.1 Hypo-osmolality and hyponatremia; R06.02 Shortness of breath; R94.31 Abnormal electrocardiogram [ECG] [EKG]; R53.83 Other fatigue; Z79.01 Long term (current) use of anticoagulants; Z79.84 Long term (current) use of oral hypoglycemic drugs; Z79.899 Other long term (current) drug therapy; Z82.49 Family history of ischemic heart disease and other diseases of the circulatory system
CPT/HCPCS: 36415; 71046; 80048; 80053; 83690; 83735; 84443; 84484; 85025; 85610; 85730; 92960; 93005; 96361; 96365; 96366; 96375; 96376; 99285; A9270; G0378; J0282; J2250; J3010; J7040; J7120

== ENCOUNTER 2025-04-19 11:05 | Outpatient (CLI) | payer OTHER, SELFPAY ==
--- NOTE | ~2025-04-19 | XR_ITS ---
EXAMINATION: XR chest 2V 04/19/2025 11:42 INDICATION: Shortness of breath PROCEDURE: 2 view chest COMPARISON: Comparison to multiple prior studies sequentially, with oldest reviewed study dated 08/18/2014. FINDINGS: The lungs are clear. The cardiomediastinal silhouette is within normal limits. There are no pleural effusions. There is no pneumothorax suspected. There are healed right upper and left lower rib fractures. IMPRESSION: 1: NO ACUTE CARDIOPULMONARY DISEASE. Reviewed, dictated and finalized at location O.
[2025-04-19 11:21] LABS: Hematocrit 44.5 % (40.0-54.0); Hemoglobin 14.5 g/dL (14.0-18.0); Immature Granulocyte Percent A 0.3 % (0.0-0.0); Lymphocytes Absolute Auto 1.59 K/mm3 (1.10-4.50); Mean Corpuscular HGB Conc 32.6 g/dL (32-36); Mean Corpuscular Hemoglobin 32.0 pg (27.0-31.0); Mean Corpuscular Volume 98.2 fL (78.0-102.0); Nucleated Red Blood Cells Absolute Auto 0.00 K/mm3 (0.00-0.00); Nucleated Red Blood Cells Perc 0.0 % (0-0.0); Platelet Count Result 306 K/mm3 (150-420); Red Blood Count 4.53 M/mm3 (4.70-6.10); White Blood Count 12.0 K/mm3 (4.8-10.8)
--- OUTSIDE RECORDS SUMMARY | 2025-04-19 11:29 | XMS_ITS | Clinical Summary ---
Author Organization [facility] Address [address] [place] [address] Care Team Providers Care Neon Tube Bender Name Role Phone Boo Argueta MD Primary Care Provider + [phone] Allergies No known active allergies Medications folic acid (FOLVITE) 1 mg tablet Take 1,000 mcg by mouth daily 2 Active thiamine (VITAMIN B-1) 100 mg tablet Take 1 tablet (100 mg total) by mouth every morning 2 Active Eliquis 5 mg tablet TAKE 1 TABLET BY MOUTH EVERY 12 HOURS 180 tablet 3 4 Active spironolactone (ALDACTONE) 25 mg tablet TAKE 1 TABLET BY MOUTH EVERY DAY IN THE MORNING 90 tablet 2 4 Active Additional Information Patient not taking.Reported on 04/10/2025 furosemide (LASIX) 40 mg tablet TAKE 1 TABLET BY MOUTH EVERY DAY 90 tablet 2 4 Active atorvastatin (LIPITOR) 10 mg tablet TAKE 1/2 TABLET BY MOUTH DAILY 45 tablet 3 5 Active Entresto 24-26 mg tablet TAKE 1 TABLET BY MOUTH EVERY 12 HOURS 180 tablet 3 5 Active Additional Information Patient not taking.Reported on 04/10/2025 metoprolol XL (TOPROL-XL) 50 mg extended release tablet Take 1 tablet (50 mg total) by mouth 2 (two) times a day 180 tablet 2 5 Active multivitamin-mi nerals-lutein tablet Take by mouth Active Active Problems Problem Noted Date Diagnosed Date Other thrombophilia 06/29/2023 Alcoholism 06/09/2022 Paroxysmal atrial fibrillation 04/17/2022 Dilated cardiomyopathy 04/17/2022 History of adenomatous polyp of colon 10/05/2018 Overview (10/05/2018): Added automatically from request for surgery [id number] Screen for colon cancer 10/05/2018 Overview (10/05/2018): Added automatically from request for surgery [id number] Encounters Date Type Department Care Team Description 04/10/2025 10:00 AM CDT Office Visit [facility] Cardiology [address] [place] [phone] Kerry Steel MD Lipid screening (Primary Dx); Dilated cardiomyopathy (HCC); Paroxysmal atrial fibrillation (HCC) 04/03/2025 10:00 AM CDT Office Visit [facility] Cardiology [address] [place] [phone] Kerry Steel MD Paroxysmal atrial fibrillation (HCC) (Primary Dx); Dilated cardiomyopathy (HCC) from Last 3 Months Surgical History Surgery Date Site/Laterality Comments POLYPECTOMY COLONOSCOPY 09/24/2015 - 10/22/2015 Medical History Medical History Date Comments Colon polyp Hypertension Hyperlipidemia CHF (congestive heart failure) (HCC) Atrial fibrillation (HCC) Family History Medical History Relation Name Comments Lung cancer Father Rectal cancer Mother Relation Name Status Comments Father Mother Social History Tobacco Use Types Packs/Day Years Used Date Smoking Tobacco: Every Day Cigarettes 1 30 Smokeless Tobacco: Never Tobacco Cessation:Ready to Q uit: Not Asked; Counseling Given: Not Answered Alcohol Use Standard Drinks/Week Comments Yes 4 (1 standard drink = 0.6 oz pur e alcohol) Sex and Gender Information Value Date Recorded Sex Assigned at Not on file Legal 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 Gender Identity Not on file Sexual Orientation Not on file Obstetrics History Last Filed Vital Signs Vital Sign Reading Time Taken Comments Blood Pressure 118/64 04/10/2025 10:14 AM CDT Pulse 55 04/10/2025 10:14 AM CDT Temperature 36.6 C (97.8 F) 11/02/2018 9:45 AM CDT Respiratory Rate 16 04/10/2025 10:14 AM CDT Oxygen Saturation 99% 04/10/2025 10:14 AM CDT Inhaled Oxygen Concentration - - Weight 83.9 kg (185 lb) 04/10/2025 10:14 AM CDT Height 177.8 cm (5' 10) 04/10/2025 10:14 AM CDT Body Mass Index 26.54 04/10/2025 10:14 AM CDT Plan of Treatment Health Maintenance Due Date Last Done Comments Depression Screening 1965 Prostate Cancer Screening-PSA 1965 Hepatitis B Screening 1982 Regular Well Visit/Exam 18-64 1982 Lung Cancer Screening 2014 Zoster Vaccine (1 of 2) 2014 Pneumococcal vaccine <65 (2 of 2 - PPSV23, PCV20, or PCV21) 12/20/2015 10/25/2015 Covid-19 Vaccine (2 - 2023-2 5 season) 2024 07/08/2021 Influenza Vaccine (#1) 2025 DTaP/Tdap/Td Vaccine (2 - Td or Tdap) 10/24/2025 10/25/2015 Colon Cancer Screening-Colonoscopy 11/02/2028 11/02/2018, 10/23/2015, 10/23/2015 Hepatitis C Screening Completed 02/19/2017 , 09/04/2016, 07/24/2016, Additional history exists Colon Cancer Screening-CT Colonography Discontinued 11/02/2018, 10/23/2015, 10/23/2015 Colon Cancer Screening-DNA Stool Discontinued 11/02/2018, 10/23/2015, 10/23/2015 Colon Cancer Screening-FIT Discontinued 11/02, 10/23/2015, 10/23/2015 Colon Cancer Screening-Sigmoidoscopy Discontinued 11/02/2018, 10/23/2015, 10/23/2015 Procedures Procedure Name Priority Date/Time Associated Diagnosis Comments COLONOSCOPY 11/02/2018 8:35 AM CDT HEPATITIS C RNA, QUANTITATIVE, PCR New Adm-Reg 02/19/2017 3:50 PM CDT from Last 3 Months or Most Recently Relevant to Health Maintenance Results * COLONOSCOPY (11/02/2018 8:35 AM CDT) Anatomical Region Laterality Modality Other Narrative Procedure Note Bettie Galan MD - 11/02/2018 8:35 AM CDT [facility] Patient Name: Db Carbajal Procedure Date: 11/02/2018 8:35 AM Date of : 1965 Admit Type: Outpatient Age: 53 Gender: Male Attending MD: Bettie Galan M.D. Room: [facility] ENDOSCOPY ROOM 1 Note Status: Finalized Patient Profile: 53 WM, h/o adenoma polyps, no family h/o coloncancer. Procedure: Colonoscopy Indications: High risk colon cancer surveillance: Personalhistory of colonic polyps Referring MD: Boo Argueta MD Providers: Bettie Galan M.D. Impression: - Diverticulosis in the sigmoid colon. - One 4 mm polyp in the distal sigmoid colon,removed with a jumbo cold forceps. Resected and retrieved. - Internal hemorrhoids. Recommendation: - Await pathology results. - Repeat colonoscopy in 3 - 5 years forsurveillance. Medicines: Monitored Anesthesia Care Complications: No immediate complications. Estimated Blood Loss: Estimated blood loss: none. Procedure: Pre-Anesthesia Assessment: - Prior to the procedure, a History and Physical was performed, and patient medications and allergieswere reviewed. The patient's tolerance of previous anesthesia was also reviewed. The risks and benefitsof the procedure and the sedation options and riskswere discussed with the patient. All questions were answered, and informed consent was obtained. Prior Anticoagulants: The patient has taken no previous anticoagulant or antiplatelet agents. ASA Grade Assessment: II - A patient with mild systemicdisease. After reviewing the risks and benefits, the patientwas deemed in satisfactory condition to undergo the procedure. The benefits, risks and alternatives of theprocedure and sedation were discussed and informed consent was obtained. All questions were answered. Please referto the signed informed consent document in the medical record. The scope was passed under direct vision.The Pediatric Colonoscope PCF-H190L [id number] was introduced through the anus and advanced to the the cecum, identified by appendiceal orifice andileocecal valve. The colonoscopy was performed without difficulty. The patient tolerated the procedurewell. The quality of the bowel preparation was good. Findings: The perianal and digital rectal examinations were normal. The cecum appeared normal. Multiple small-mouthed diverticula were found in the sigmoid colon. A 4 mm polyp was found in the distal sigmoid colon. The polyp was sessile. The polyp was removed with a jumbo cold forceps. Resectionand retrieval were complete. Internal hemorrhoids were found during retroflexion. The hemorrhoids were medium-sized. Electronically signed by Bettie Galan M.D. Bettie Galan M.D. 11/02/2018 9:16:50 AM Number of Addenda: 0 Note Initiated On: 11/02/2018 8:35 AM Procedure Code(s): --- Professional --- 41967, Colonoscopy, flexible; with biopsy, single or multiple Diagnosis Code(s): --- Professional --- Z86.010, Personal history of colonic polyps K64.8, Other hemorrhoids D12.5, Benign neoplasm of sigmoid colon K57.30, Diverticulosis of large intestine without perforation orabscess without bleeding CPT copyright 2017 [employer]. All rights reserved. The codes documented in this report are preliminary and upon timber framer reviewmay be revised to meet current compliance requirements. Recognized by the [employer] for promoting quality in endoscopy Bettie Galan MD ENDOSCOPY PROCEDURES Final Result * Hepatitis C RNA, quantitative, PCR (02/19/2017 3:50 PM CDT) HCV RNA qn Undetected Undetected IUnits/mL [facility] Comment: Result in log IU/mL is Undetected. ADDITIONAL INFORMATION The quantification range of this assay is 15 to 100,000,000 IU/mL (1.18 log to 8.00 log IU/mL). Testing was performed by the [employer] AmpliPrep/[employer] TaqMan HCV Test, version 2.0 ([employer] Test Performed by: [place] [address] Blood specimen (specimen) 02/19/2017 3:50 PM CDT 02/19/2017 3:55 PM CDT Bettei Galan MD LAB MICROBIOLOGY - GENERAL ORDERABLES Final Result [facility] [address] [facility] Department [place] [address] from Last 3 Months or Most Recently Relevant to Health Maintenance Insurance [employer] [facility] HMO Advance Directives For more information, please contact: [phone] * Full Code (Latest Code Status on File) Date Activated Date Inactivated Comments 11/02/2018 7:44 AM 11/02/2018 1:49 PM * Full Code Date Activated Date Inactivated Comments 11/02/2018 7:44 AM 11/02/2018 7:44 AM Care Teams Neon Tube Bender Relationship Specialty Start Date End Date Boo Argueta MD [address] [place] [address] PCP - General 02/19/17
--- OUTSIDE RECORDS SUMMARY | 2025-04-19 11:29 | XMS_ITS | Encounter Summary ---
Author Organization [facility] Address [address] [place] [address] Care Team Providers Care Candle Molder Machine Name Role Phone Boo Argueta MD Primary Care Provider + [phone] Encounter Details Date Type Department Care Team (Late st Contact Info) Description 10/23/2015 Orders Only [facility] Information [facility] [address] [place] [address] Scanning, Provider Social History Tobacco Use Types Packs/Day Years Used Date Smoking Tobacco: Never Assessed Sex and Gender Information Value Date Recorded Sex Assigned at Not on file 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 Gender Identity Not on file Sexual Orientation Not on file documented as of this encounter Plan of Treatment Not on file documented as of this encounter Procedures Procedure Name Priority Date/Time Associated Diagnosis Comments GI - RESULT 10/23/2015 SCAN - PATHOLOGY 10/23/2015 documented in this encounter Results * SCAN - PATHOLOGY (10/23/2015) us Provider Scanning Final Result * GI - RESULT (10/23/2015) Anatomical Region Laterality Modality Other us Provider Scanning Final Result documented in this encounter Visit Diagnoses Not on filedocumented in this encounter Care Teams Candle Molder Machine Relationship Specialty Start Date End Date Boo Argueta MD [address] [place] [address] PCP - General 02/19/17 documented as of this encounter
[2025-04-19 12:12] LABS: Alanine Aminotransferase 32 U/L (6-50); Albumin Level 4.4 g/dL (3.5-5.1); Alkaline Phosphatase 102 U/L (38-126); Anion Gap 12 mmol/L (4-12); Aspartate Amino Transferase 49 U/L (17-59); Bilirubin,Total 0.8 mg/dL (0.2-1.3); Blood Urea Nitrogen 21 mg/dL (9-20); Calcium 9.6 mg/dL (8.4-10.2); Carbon Dioxide 28 mmol/L (22-30); Chloride 100 mmol/L (98-107); Cholesterol 143 mg/dL (0-200); Estimated Glomerular Filt Rate > 60; Glucose 96 mg/dL (65-110); HDL Direct 33 mg/dL; Osmolality Calculated 293 mOsm/kg (285-295); Potassium 4.1 mmol/L (3.4-5.0); Sodium 140 mmol/L (137-145); Total Protein 7.8 g/dL (6.3-8.2); Triglycerides 136 mg/dL (<150)
[2025-04-19 12:23] LABS: NT Pro B Type Natriuretic Pept 6770 pg/mL (19.9-100); Troponin I < 0.012 ng/mL (0.000-0.034)
[2025-04-19 12:43] LABS: Thyroid Stimulating Hormone Reflex 3.070 uIU/mL (0.465-4.68)
== END 2025-04-19 11:06 | disposition home or self-care (01) ==
LOC: CHSLAB 11:06
PROVIDERS: PCP Family Medicine; Visit Provider Family Medicine
DX: E03.9 Hypothyroidism, unspecified (principal); I42.6 Alcoholic cardiomyopathy
CPT/HCPCS: 36415; 71046; 80053; 80061; 83880; 84443; 84484; 85025

== ENCOUNTER 2025-04-26 16:20 | Emergency (ER) | payer OTHER, SELFPAY ==
[2025-04-26] VITALS (43 sets, daily range): BP systolic 120–146; BP diastolic 85–111; PULSE 70–153; RESP 11–23; TEMP 36.7; O2SAT 91–100
--- NOTE | ~2025-04-26 | CT_ITS ---
EXAMINATION: CT BRAIN W/O DATE: 04/26/2025 17:11 INDICATION: Accidental fall. TECHNIQUE: Computed tomography (CT) of the head was performed without intravenous contrast. The dose-length product was 605.33 mGy-cm. Automated exposure control and iterative reconstruction technique were employed. COMPARISON: No prior studies for comparison. FINDINGS: Normal brain parenchymal volume for age. Normal sesay-white differentiation. No acute intracranial hemorrhage, infarction, mass or mass effect. No ventriculomegaly or midline shift. Midline sagittal images demonstrate a normal corpus callosum, craniovertebral junction and sella turcica. Basilar cisterns are patent. Paranasal sinuses and mastoids are pneumatized. No depressed skull fractures. IMPRESSION: 1. No acute intracranial abnormality. Reviewed, dictated and finalized at location O.
--- NOTE | ~2025-04-26 | XR_ITS ---
EXAMINATION: XR chest 1V portable 04/26/2025 17:12 INDICATION: CHF PROCEDURE: 2 view chest COMPARISON: No prior studies for comparison. FINDINGS: The lungs are clear. There are chronic healed right rib fractures. The cardiomediastinal silhouette is within normal limits. There are no pleural effusions. There is no pneumothorax suspected. IMPRESSION: 1: NO ACUTE CARDIOPULMONARY DISEASE. Reviewed, dictated and finalized at location O.
--- NOTE | ~2025-04-26 | CT_ITS ---
EXAMINATION: CT cervical spine wo con DATE: 04/26/2025 17:11 INDICATION: Status post fall. Neck pain. TECHNIQUE: Computed tomography (CT) of the cervical spine was performed without intravenous contrast. The dose-length product was 365 mGy-cm. Automated exposure control and iterative reconstruction technique were employed. COMPARISON: None FINDINGS: There is disc narrowing at C5-6 and C6-7. Prominent ventral osteophytes at most cervical levels. Odontoid process is normal. Craniovertebral junction is normal. There is multilevel level facet and uncinate hypertrophy most advanced at C5-6 and C6-7. No paraspinal soft tissue abnormality. There is carotid atherosclerosis. No acute fracture or traumatic malalignment. IMPRESSION: 1. No acute abnormality of the cervical spine. 2: Severe cervical spondylosis. Reviewed, dictated and finalized at location O.
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
--- NOTE | 2025-04-26 16:31 | ECG_ITS ---
Test Date: 2025-04-26 16:41:06 Measurements Intervals [place] Rate: 143 P: 0 OR: 0 QRS: 62 QRSD: 66 T: 48 QT: 279 QTc: 431 Interpretive Statements ATRIAL FIBRILLATION WITH RAPID VENTRICULAR RESPONSE LOW QRS VOLTAGE IN PRECORDIAL LEADS [QRS DEFLECTION < 1.0 mV IN CHEST LEADS] ABNORMAL ECG No previous ECG available for comparison Electronically Signed On 04-26-2025 17:05:08 CDT by Bryan Clifton M.D.
[2025-04-26 16:50] LABS: Hematocrit 42.5 % (40.0-54.0); Hemoglobin 14.2 g/dL (14.0-18.0); Mean Corpuscular HGB Conc 33.4 g/dL (32-36); Mean Corpuscular Hemoglobin 31.8 pg (27.0-31.0); Mean Corpuscular Volume 95.3 fL (78.0-102.0); Platelet Count Result 293 K/mm3 (150-420); Red Blood Count 4.46 M/mm3 (4.70-6.10); White Blood Count 6.5 K/mm3 (4.8-10.8)
--- NOTE | 2025-04-26 16:59 | PC.NURSE ---
pt to xray for head ct per stretcher with fixed interest dealer and xray staff.
[2025-04-26 17:04] LABS: Acetaminophen < 10 ug/mL (10-30); Ammonia < 9 umol/L (9-30); Salicylate < 1.0 mg/dL (2-20)
[2025-04-26 17:07] LABS: Anion Gap 12 mmol/L (4-12); Blood Urea Nitrogen 10 mg/dL (9-20); Calcium 8.6 mg/dL (8.4-10.2); Carbon Dioxide 29 mmol/L (22-30); Chloride 107 mmol/L (98-107); Estimated CRCL calculation 79 ml/min; Estimated Glomerular Filt Rate > 60; Glucose 108 mg/dL (65-110); Osmolality Calculated 306 mOsm/kg (285-295); Potassium 4.1 mmol/L (3.4-5.0); Sodium 148 mmol/L (137-145)
[2025-04-26 17:08] LABS: Alanine Aminotransferase 24 U/L (6-50); Albumin Level 4.1 g/dL (3.5-5.1); Alkaline Phosphatase 80 U/L (38-126); Aspartate Amino Transferase 47 U/L (17-59); Bilirubin,Total 0.4 mg/dL (0.2-1.3); Creatine Kinase 58 U/L (55-170); Lipase 151 U/L (23-300); Magnesium 2.0 mg/dL (1.6-2.3); Total Protein 7.4 g/dL (6.3-8.2)
--- OUTSIDE RECORDS SUMMARY | 2025-04-26 17:11 | XMS_ITS | Clinical Summary ---
Author Organization [facility] Address [address] [place] [address] Care Team Providers Care Graphics Editor Name Role Phone FarhanaKannan desir Erazo Primary Care Provider Allergies No known active allergies Medications folic [...] (10/05/2018): Added automatically from request for surgery [id number] Screen for colon cancer 10/05/2018 Overview (10/05/2018): Added automatically from request for surgery [id number] Encounters Date Type Department Care Team Description 04/10/2025 10:00 AM CDT Office Visit [facility] Medical 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 Room: [facility] ENDOSCOPY ROOM 1 Note Status: [...] passed under direct vision.The Pediatric Colonoscope PCF-H190L [id number] was introduced through the anus and advanced [...] 8:35 AM Procedure Code(s): --- Professional --- 46169, Colonoscopy, flexible; with biopsy, single or multiple Diagnosis Code(s): --- Professional --- Z86.010, Personal history of colonic polyps K64.8, Other hemorrhoids D12.5, Benign neoplasm of sigmoid colon K57.30, Diverticulosis of large intestine without perforation orabscess without bleeding CPT copyright 2017 [employer]. All rights reserved. The codes documented in this report are preliminary and upon rugby league footballer reviewmay be revised to meet current compliance requirements. Recognized by the [employer] for promoting quality in endoscopy Bettie Galan MD ENDOSCOPY PROCEDURES Final Result * Hepatitis C RNA, quantitative, PCR (02/19/2017 3:50 PM CDT) HCV RNA qn Undetected Undetected IUnits/mL [facility] Comment: Result in log IU/mL is Undetected. ADDITIONAL INFORMATION The quantification range of this assay is 15 to 100,000,000 IU/mL (1.18 log to 8.00 log IU/mL). Testing was performed by the [employer] AmpliPrep/KELSEA TaqMan HCV Test, version 2.0 ([employer] Test Performed by: [place] [address] Blood specimen (specimen) 02/19/2017 3:50 PM CDT 02/19/2017 3:55 PM CDT Bettie Galan MD LAB MICROBIOLOGY - GENERAL ORDERABLES Final Result [facility] ([place]) [address] [facility] Department [place] [address] from Last 3 Months or Most Recently Relevant to Health Maintenance Insurance [employer] [facility] HMO Advance Directives For more information, please contact: [phone] * Full Code (Latest Code Status on File) Date Activated Date Inactivated Comments 11/02/2018 7:44 AM 11/02/2018 1:49 PM * Full Code Date Activated Date Inactivated Comments 11/02/2018 7:44 AM 11/02/2018 7:44 AM Care Teams Graphics Editor Relationship Specialty Start Date End Date Kannan Rosenthal DO [address] [place] [address] PCP - General Family Medicine 04/19/25
--- OUTSIDE RECORDS SUMMARY | 2025-04-26 17:11 | XMS_ITS | Encounter Summary ---
Author Organization [facility] Address [address] [place] [address] Care Team Providers Care Superintendent Board Mill Name Role Phone Boo Argueta MD Primary Care Provider + [phone] Kannan Rosenthal DO Primary Care Provider Encounter Details Date Type Department Care Team (Late st Contact Info) Description 10/23/2015 Orders Only [facility] Health Information Management [address] [place] [address] Scanning, Provider Social History Tobacco Use Types Packs/Day Years Used Date Smoking Tobacco: Never Assessed Sex and Gender Information Value Date Recorded Sex Assigned at Not on file 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
[2025-04-26 17:15] LABS: NT Pro B Type Natriuretic Pept 1710 pg/mL (19.9-100); Troponin I < 0.012 ng/mL (0.000-0.034)
[2025-04-26 17:19] LABS: Band Neutrophils Percent 0 % (0-6); Basophils Absolute Manual 0.00 K/mm3 (0-0.1); Basophils Percent Manual 0 % (0-1); Eosinophils Absolute Manual 0.06 K/mm3 (0.02-0.50); Eosinophils Percent Manual 1 % (1-6); Lymphocytes Absolute Manual 2.73 K/mm3 (1.1-4.5); Lymphocytes Percent Manual 42 % (18-44); Monocytes Absolute Manual 0.84 K/mm3 (0.1-0.90); Monocytes Percent Manual 13 % (3-9); Neutrophils Absolute Manual 2.86 K/mm3 (1.3-6.7); Neutrophils Percent Manual 44 % (46-73); Total Cells Counted 100
[2025-04-26] MEDS: dilTIAZem 100 MG/100 ML 100 MG/100 ML BAG IV CONT (17:28)
[2025-04-26] MEDS: THIAMINE HCL INJ 100 MG, FOLIC ACID 1 MG, MULTIVITAMINS-12 INJ 10 ML, MAGNESIUM SULFATE... IV CONT (17:34)
--- NOTE | 2025-04-26 17:58 | PC.NURSE ---
caregiver--carol / ex --rick-- who is power of admitted attorneys for health care in room with pt. redirection and reassurance given to pt and family. call stanton in reach. lights out for comfort.
[2025-04-26] MEDS: LACTATED RINGERS 1,000 ML 999 ML IV CONT (18:16)
--- NOTE | 2025-04-26 19:01 | PC.NURSE ---
report to frieda hawkins
[2025-04-26] MEDS: APIXABAN 2.5 MG TABLET 5 MG PO (19:54)
[2025-04-27] VITALS (106 sets, daily range): BP systolic 119–155; BP diastolic 80–126; PULSE 99–179; RESP 11–26; TEMP 36.7–36.8; O2SAT 89–100
[2025-04-27] MEDS: diazePAM (*CRX) 5 MG TABLET 10 MG PO (01:00)
[2025-04-27] MEDS: dilTIAZem 100 MG/100 ML 100 MG/100 ML BAG IV CONT ×2 (02:52→07:58)
[2025-04-27] MEDS: diazePAM (*CRX) 5 MG TABLET PO (03:15)
[2025-04-27] MEDS: METOPROLOL TARTRATE INJ 5 MG/5 ML VIAL IV PUSH ×2 (03:39→09:23)
[2025-04-27] MEDS: METOPROLOL TARTRATE 50 MG TAB PO (05:32)
--- NOTE | 2025-04-27 06:53 | PC.NURSE ---
This RN called and spoke with SALMA Ecsoto about patient refusing to be transferred for admission for afib with RVR and alcohol withdraw. Risks and benefits were explained to both the POA and patient. Both verbalized understanding of leaving AMA. Patient adamant about leaving, states that he doesn't have his phone, needs to check on his dog and that he is supposed to see his hall coordinator today, so he will fine. Patient educated extensively throughout the night about his condition and the recommendation of admission, however patient has still refused admission and has requested to leave AMA. ERP at bedside during exchange.
--- NOTE | 2025-04-27 07:27 | PC.NURSE ---
SLAMA Escoto at bedside speaking with patient about admission versus AMA at this time. They will inform RN of their decision.
--- NOTE | 2025-04-27 07:37 | PC.NURSE ---
arrives to take pt home after pt sx out ama. speaking with pt and decides pt will stay and be transferred to nanosystems engineer at [facility]. pt alert and oriented x3. agrees to stay and be cared for.
[2025-04-27] MEDS: LORazepam INJ (*CRX) 2 MG/ML VIAL 1 MG IV PUSH (10:13)
== END 2025-04-27 13:20 | disposition short-term general hospital (02) ==
PROVIDERS: Internal Medicine Critical Care Medicine; Emergency Provider Emergency Medicine; PCP Family Medicine
DX: I48.20 Chronic atrial fibrillation, unspecified (principal); F10.929 Alcohol use, unspecified with intoxication, unspecified; I11.0 Hypertensive heart disease with heart failure; I50.9 Heart failure, unspecified; Z79.01 Long term (current) use of anticoagulants; F17.210 Nicotine dependence, cigarettes, uncomplicated
CPT/HCPCS: 36415; 70450; 71045; 72125; 80053; 80143; 80179; 82077; 82140; 82550; 83605; 83690; 83735; 83880; 84484; 85025; 93005; 96361; 96365; 96366; 96375; 96376; 99285; A9270; J0616; J1163; J2060; J3411; J3475; J7120; J7121

== ENCOUNTER 2025-06-02 14:28 | Outpatient (CLI) | payer OTHER, SELFPAY ==
--- NOTE | ~2025-06-02 | CT_ITS ---
EXAMINATION: CT soft tissue neck w con COMPARISON: None HISTORY: J38.7 - Other diseases of larynx TECHNIQUE: Axial images were obtained with IV contrast. Sagittal, coronal reconstruction images were obtained from the axial views. Omnipaque 370, [address] scan performed using dose optimization techniques including the following automated exposure control; adjustment of mA and/or kV; use of iterative reconstruction technique. Automatic exposure control was used to reduce radiation dose. Permanent radiation dose record is archived to PACS. FINDINGS: Visualized brain parenchyma appears unremarkable. Optic globes are unremarkable Impression artifact limits evaluation but there is no gross thickening of the prevertebral space or asymmetry of the airway. There is no asymmetry of the base of the tongue on the aryepiglottic folds. There is narrowing of the airway at the level of the vocal cords with suggestion of fullness of the left piriform sinus incompletely evaluated No thyroid nodules. No lymphadenopathy anterior superior mediastinum. No thickening of the esophagus Parapharyngeal spaces and tonsillar tissue appear unremarkable The right parotid glands unremarkable. Adjacent to the anterior aspect left parotid gland there is a focus of abnormal density possibly atypical periparotid lymph node but incompletely characterized measuring 1.5 x 1 cm. Submandibular glands unremarkable No jugulodigastric, posterior cervical or supraclavicular lymphadenopathy The lung apices are unremarkable. There are no sclerotic or lytic lesions. No significant sinusitis. Moderate atherosclerotic changes noted of the internal carotid arteries bilaterally. Soft tissues demonstrate a cystic focus adjacent to the right parotid gland measuring 7 x 8 mm possible sebaceous cyst. IMPRESSION: 1. Limited study. Fullness of the left piriform sinus, direct visualization recommended. 2. Left parotid lesion incompletely evaluated. Contrast-enhanced MRI recommended. Reviewed, dictated and finalized at location P. Impression artifact limits evaluation but there is no gross thickening of the p revertebral space or asymmetry of the airway. There is no asymmetry of the base of the tongue on the aryepiglottic folds. There is narrowing of the airway at the level of the vocal cords with suggestion of fullness of the left piriform s inus incompletely evaluated No thyroid nodules. No lymphadenopathy anterior superior mediastinum. No thicke miguel of the esophagus Parapharyngeal spaces and tonsillar tissue appear unremarkable The right parotid glands unremarkable. Adjacent to the anterior aspect left par otid gland there is a focus of abnormal density possibly atypical periparotid l ymph node but incompletely characterized measuring 1.5 x 1 cm. Submandibular gl ands unremarkable No jugulodigastric, posterior cervical or supraclavicular lymphadenopathy The lung apices are unremarkable. There are no sclerotic or lytic lesions. No s ignificant sinusitis. Moderate atherosclerotic changes noted of the internal carotid arteries bilater ally. Soft tissues demonstrate a cystic focus adjacent to the right parotid gla nd measuring 7 x 8 mm possible sebaceous cyst. IMPRESSION: 1. Limited study. Fullness of the left piriform sinus, direct visualization rec ommended. 2. Left parotid lesion incompletely evaluated. Contrast-enhanced MRI recommende d.
[2025-06-02 14:53] LABS: Estimated Glomerular Filt Rate 56
== END 2025-06-02 14:29 | disposition home or self-care (01) ==
PROVIDERS: PCP Family Medicine; Visit Provider Otolaryngology
DX: J38.7 Other diseases of larynx (principal); R49.0 Dysphonia
CPT/HCPCS: 70491; Q9967

== ENCOUNTER 2025-06-12 01:01 | Day surgery (SDC) | payer OTHER, SELFPAY ==
[2025-06-06 09:21] VITALS: BMI 25.9
--- NOTE | 2025-06-06 09:33 | PC.NURSE ---
[facility] has started construction of its new state of the art ER which will open Spring 2026. With this, we anticipate parking may be a challenge for some our surgical patients and families. Parking spaces are limited but are available for all Surgical, obstetrics, and ER patients sharing this lot. If you arrive and find you are having a hard time finding a parking space, please note that we understand the challenges, please drive around the hospital and park near Hospital Entrance 1. When you enter this entrance, you can ask a volunteer to direct or take you back to the surgical waiting area to check in. We appreciate everyone?s understanding of these expected challenges while we build for your future. Report to the Outpatient Waiting Room, entrance under the green pavilion located off [address], at time _1230_ on date _[id number]_. Planned Procedure Time: _230pm_.? Time changes happen often and if your time is changed the preop area will call you the afternoon before. - You and your visitor will be asked to self-screen and do not enter if you have any COVID symptoms. Please call surgeon if you need to reschedule. - A mask is optional within the hospital at this time. Patients may have clear liquids (water, carbonated beverages, clear teas, apple juice) until 3 hours prior to surgery with a maximum of 20 ounces. - No food from midnight until time of surgery and no smoking, or chewing tobacco (or any form of nicotine). No chewing gum, candy or mints. Take only the following medications with a SIP of water on the morning of surgery: ___Bupropion and Amlodipine DO NOT STOP ANY OF YOUR OTHER PRESCRIPTION MEDICATIONS PRIOR TO SURGERY EXCEPT THE FOLLOWING Hold all vitamins and supplements for 3 days per anesthesiologist. Medications to discontinue per physician Please call Dr Correia's office about when to hold Eliquis. Date to take last dose Please no make-up, nail russian, hairspray, perfume, deodorant, or body powder the day of surgery.? No jewelry (including any body piercings) or valuables the day of surgery, leave them at home.? Please take a shower or bath the night before, or the morning of, surgery with an antibacterial soap.? Wear comfortable, loose fitting clothing.? - Jewelry must be removed prior to entering the operating room.? Rings and piercings that are not removed may be cut off. - The hospital will not accept responsibility for valuables.? - Please leave all valuables, including medications, at home the day of surgery. If you are going home after surgery, a licensed limo driver must drive you home.? - NO public transportation without another adult if you receive anesthesia. - We recommend that an adult stay with you for 24 hours following discharge. - We also recommend that you do not drive, make important decision, drink alcoholic beverages, or take any drugs that were not prescribed by your health care provider for at least 24 hours after your discharge time. Follow any additional instructions given to you from your surgeon. Telephone instructions given to __Db___and asked if any additional questions and then verbalized understanding. Patient advised to call surgeon office or pre surgery nurse liaison [phone] if any additional questions.
--- NOTE | 2025-06-09 15:40 | SUR.PREOP ---
PT CALLED WITH TIME CHANGE, PT HAD QUESTIONS ABOUT ELIQUIS. SPOKE WITH DR. LOCKETT. PT TO STOP ELIQUIS TODAY AND INFOR HIS PRESCRIBING MD. RETURNED CALL TO PT AND INFORMED HIM OF DR. SALAS INSTRUCTIONS.
[2025-06-12] VITALS (7 sets, daily range): BP systolic 135–181; BP diastolic 94–99; PULSE 65–88; RESP 14–18; TEMP 36.8; O2SAT 98–100; BMI 25.0
--- OUTSIDE RECORDS SUMMARY | 2025-06-12 01:04 | XMS_ITS | Clinical Summary ---
Author Organization [facility] Address [address] [place] [address] Care Team Providers Care Supervisor Machine Setter Name Role Phone None, Provider MD Primary Care Provider Unavaila ble Allergies No known active allergies Medications atorvastatin (LIPITOR) 10 MG tablet Take 1 tablet (10 mg total) by mouth nightly at bedtime. Active sacubitril-valsa rtan (ENTRESTO) 24-26 MG tablet Take 1 tablet by mouth daily. Active spironolactone (ALDACTONE) 25 MG tablet Take 1 tablet (25 mg total) by mouth daily. Active Multiple Vitamins-Mineral s (CENTRUM SILVER MEN 50+ OR) Take 1,200 mcg by mouth daily. Active furosemide (LASIX) 40 MG tablet Take 1 tablet (40 mg total) by mouth daily. Active vitamin B-1 (THIAMINE) 100 MG tablet Take 1 tablet (100 mg total) by mouth daily. 30 tablet 1 05/02/20 25 Active amiodarone (PACERONE) 200 MG tablet Take 1 tablet two times daily ( morning and evening) for 30 days then take 1 tablet daily after that 60 tablet 1 05/01/20 25 Active apixaban (ELIQUIS) 5 MG tabletIndication s:Atrial Fibrillation Take 1 tablet (5 mg total) by mouth 2 (two) times daily. Indications: Atrial Fibrillation 60 tablet 1 05/01/20 25 Active chlordiazePOXIDE (LIBRIUM) 5 MG capsuleIndicatio ns:Alcohol withdrawal syndrome without complication (CMS/HCC HHS/HCC) Take 2 capsules three times daily for 3 days then take 1 capsule three times daily for 3 days then take 1 capsule at night for 3 days and stop 30 capsule 05/01/20 25 Active nicotine (NICODERM CQ) 14 MG/24HR Place 1 patch (14 mg total) onto the skin daily for 30 days. 28 patch 05/01/20 25 025 Resolved Problems Problem Noted Date Diagnosed Date Resolved Date Atrial fibrillation with rap id ventricular response 04/27/2025 05/01/2025 Encounters Date Type Department Care Team Description 06/09/2025 Orders Only [facility] [address] [place] [address] Conner Charles MD 05/04/2025 [facility]phone [facility] [address] [place] [address] Conner Charles MD Appointment Reminder 04/27/2025 2:29 PM CDT - 05/01/2025 5:19 PM CDT Hospital Encounter [facility] [address] [place] [address] Sara López MD Mardani, Fareed, MD Lin, Kevin A, MD Mahmoud, Anas, MD Sohail, Atif, MD Discharge Disposition: Home or Self Care (Routine Discharge) 04/27/2025 Travel from Last 3 Months Social History Tobacco Use Types Packs/Day Years Used Date Smoking Tobacco: Every Day Cigarettes 2 45.8 Started: 08/24/1979 Smokeless Tobacco: Never Tobacco Cessation:Ready to Q uit: Not Asked; Counseling Given: Not Answered [facility] Utilities Answer Date Recorded In the past 12 months has e [employer], oil, or water [employer] threatened to shut off services in your home? No 04/27/2025 Humiliation, Afraid, Rape, and Kick questionnair e Answer Date Recorded Within the last year, have y ou been afraid of your partner or ex-partner? No 04/27/2025 Within the last year, have y ou been humiliated or emotionally abused in other ways by your partner or ex-partner? No Within the last year, have y ou been kicked, hit, slapped, or otherwise physically hurt by your partner or ex-partner? No 04/27/2025 Within the last year, have y ou been raped or forced to have any kind of sexual activity by your partner or ex-partner? No 04/27/2025 Overall Financial Resource Strain (CARDIA) Answe r Date Recorded How hard is it for you to pa y for the very basics like food, housing, medical care, and heating? Not very hard 04/27/2025 Hunger Vital Sign Answer Date Recorded Within the past 12 months, y ou worried that your food would run out before you got the money to buy more. Never true 04/27/20 25 Within the past 12 months, t he food you bought just didn't last and you didn't have money to get more. Never true 04/27/2025 PRAPARE - Transportation Answer Date Re corded In the past 12 months, has l ack of transportation kept you from medical appointments or from getting medications? Yes 11/2024 In the past 12 months, has l ack of transportation kept you from meetings, work, or from getting things needed for daily living? Yes 04/27/2025 Housing Stability Vital Sign Answer Aashish e Recorded In the last 12 months, was t here a time when you were not able to pay the mortgage or rent on time? No 04/27/2025 In the past 12 months, how m any times have you moved where you were living? 0 04/27/2025 At any time in the past 12 m [facility], were you homeless or living in a retirement (including now)? No 04/27/2025 Sex and Gender Information Value Date Recorded Sex Assigned at Male 04/27/2025 5:54 PM CDT Legal Sex Male 11:37 AM CDT Gender Identity Male 04/27/2025 5:54 PM CDT Sexual Orientation Straight 04/27/2025 5: 54 PM CDT Last Filed Vital Signs Vital Sign Reading Time Taken Comments Blood Pressure 122/88 05/01/2025 8:22 AM CDT Pulse 54 05/01/2025 8:22 AM CDT Temperature 36.6 C (97.9 F) 05/01/2025 8:22 AM CDT Respiratory Rate 20 05/01/2025 8:00 AM CDT Oxygen Saturation 100% 05/01/2025 8:22 AM CDT Inhaled Oxygen Concentration - - Weight 87.3 kg (192 lb 6.4 oz) 04/27/2025 2:54 P M CDT Height 177.8 cm (5' 10) 04/27/2025 2:54 PM CDT Body Mass Index 27.61 04/27/2025 2:54 PM CDT Plan of Treatment Upcoming Encounters Date Type Department Care Team (Late st Contact Info) Description 06/14/2025 2:45 PM CDT Office Visit [facility] [address] [place] [phone] Karine Nelson PA-C [address] [place] [address] Health Maintenance Due Date Last Done Comments Colorectal Cancer Screening Colonoscopy (10 Years) 1965 Annual Physical 1967 Hepatitis C 1982 Lung Cancer Screening 2014 Zoster Vaccines (1 of 2) 2014 Pneumococcal Vaccine: 50+ Ye ars (2 of 2 - PPSV23, PCV20, or PCV21) 12/20/2015 10/25/2015 RSV Immunization or 60+ Years (1 - Risk 60-74 years 1-dose series) 2024 COVID-19 Vaccine (2 - 2024-2 6 season) 2025 07/08/2021 Influenza Adult (#1) 2025 DTaP, Tdap and Td Vaccines ( 2 - Td or Tdap) 10/24/2025 10/25/2015 Hepatitis A Vaccines Aged Out No long er eligible based on patient's age to complete this topic Meningococcal B Vaccine Aged Out No l onger eligible based on patient's age to complete this topic Meningococcal Vaccine Aged Out No bk jackelin eligible based on patient's age to complete this topic RSV Immunizations Under 20 Months Aged Out No longer eligible based on patient's age to complete this topic Procedures Procedure Name Priority Date/Time Associated Diagnosis Comments ECG 12-LEAD Routine 05/01/2025 7:38 AM CDT CARDIOVERSION EXTERNAL Routine 7:30 AM CDT POCT GLUCOSE - DOCKED DEVICE Routine 05/01/2025 5:34 AM CDT PROTHROMBIN TIME, VENOUS Routine 05/01/2025 2:11 AM CDT COMPREHENSIVE METABOLIC PANEL Routine 05/01/2025 2:11 AM CDT MAGNESIUM Routine 05/01/2025 2:11 AM CDT CBC W/DIFF AUTOMATED Routine 05/01/2025 2:11 AM CDT PHOSPHORUS, INORGANIC PHOSPHATE Routine 05/01/2025 2:11 AM CDT PROTHROMBIN TIME, VENOUS Routine 04/30/2025 2:07 AM CDT COMPREHENSIVE METABOLIC PANEL Routine 04/30/2025 2:07 AM CDT MAGNESIUM Routine 04/30/2025 2:07 AM CDT CBC W/DIFF AUTOMATED Routine 04/30/2025 2:07 AM CDT PHOSPHORUS, INORGANIC PHOSPHATE Routine 04/30/2025 2:07 AM CDT POCT GLUCOSE - DOCKED DEVICE Routine 04/30/2025 12:20 AM CDT CULTURE EYE OR EAR W/ GRAM STAIN Nurse Collected Priority 04/29/2025 12:55 PM CDT POCT GLUCOSE - DOCKED DEVICE Routine 04/29/2025 11:25 AM CDT USE TRANSESOPHAGEAL ECHO Today 04/28/2025 8:16 AM CDT CARDIOVERSION EXTERNAL Routine 8:13 AM CDT LIPID PANEL Routine 04/28/2025 2:22 AM CDT THYROID STIM HORMONE TSH Routine 04/28/2025 2:22 AM CDT MAGNESIUM Routine 04/28/2025 2:22 AM CDT COMPREHENSIVE METABOLIC PANEL Routine 04/28/2025 2:22 AM CDT PARTIAL THROMBOPLASTIN TIME,PTT Routine 04/28/2025 2:22 AM CDT PROTHROMBIN TIME, VENOUS Routine 04/28/2025 2:22 AM CDT CBC W/DIFF AUTOMATED Routine 04/28/2025 2:22 AM CDT HC URINALYSIS AUTO W/MICRO Nurse Collected Priority 04/27/2025 5:29 PM CDT USE ECHOCARDIOGRAM W CON STAT 04/27/2025 5:11 PM CDT CK (CPK) STAT 04/27/2025 3:08 PM CDT MAGNESIUM STAT 04/27/2025 3:08 PM CDT COMPREHENSIVE METABOLIC PANEL STAT 04/27/2025 3:08 PM CDT CBC W/DIFF AUTOMATED STAT 04/27/2025 3:08 PM CDT ECG 12-LEAD STAT 04/27/2025 3:04 PM CDT from Last 3 Months Results * ECG 12 lead (05/01/2025 7:38 AM CDT) Only the most recent of2 resultswithin the time period is included. 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1965 Requested By: CHRIS SAMUELS Order Number: [id number] Reading MD: Conner Charles Measurements Intervals [place] Rate: 73 P: 43 NC: 193 QRS: 55 QRSD: 78 T: 7 QT: 401 QTc: 444 Interpretive Statements SINUS RHYTHM WITH FREQUENT SUPRAVENTRICULAR PREMATURE COMPLEXES NONSPECIFIC T-WAVE ABNORMALITY ABNORMAL RHYTHM ECG Procedure Note Conner Charles MD - 05/01/2025 [address] [place] [address] Test Date: 2025-05-01 Pat Name: JOYCE HELADIO Department: 1 Room: [facility] Gender: 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1965 Requested By: CHRIS SAMUELS Order Number: [id number] Reading MD: Conner Charles Measurements Intervals [place] Rate: 73 P: 43 NC: 193 QRS: 55 QRSD: 78 T: 7 QT: 401 QTc: 444 Interpretive Statements SINUS RHYTHM WITH FREQUENT SUPRAVENTRICULAR PREMATURE COMPLEXES NONSPECIFIC T-WAVE ABNORMALITY ABNORMAL RHYTHM ECG us Chris Samuels MD ECG ORDERABLES Final Result [facility] * Cardioversion external (05/01/2025 7:30 AM CDT) Narrative [facility] - 05/01/2025 7:30 AM CDT Conner Charles MD 05/01/2025 7:34 AM Cardiac Electrophysiology Procedure Note Electrical cardioversion of atrial fibrillation. ID: Joyce Leija : 1965 No primary care provider on file. LOS: 4 days DATE OF PROCEDURE: 05/01/2025 INDICATION: Atrial fibrillation TELEGRAPHIC TYPEWRITER OPERATOR CHIEF: CONNER CHARLES MD TECHNIQUE: Baseline rhythm was atrial fibrillation with ventricular rate of 83 bpm. A 360 J biphasic synchronized shock was delivered and successfully restored normal sinus rhythm but with immediate recurrence of atrial fibrillation. A 360 J biphasic synchronized shock was subsequently delivered and successfully restored normal sinus rhythm at 95 bpm. No severe bradycardia or long pauses were observed following termination of atrial fibrillation. The patient tolerated the procedure well without complications. I performed deep sedation using propofol for a total of 30 minutes. I supervised and directed Dalia Cassidy RN who assisted in monitoring patient's level of consciousness and physiological status throughout the procedure. I also supervised and directed the respiratory therapist who assisted in maintaining airway. SUMMARY: Successful electrical cardioversion of atrial fibrillation after initial IRAF. PLAN: 1. Will continue amiodarone 200mg twice daily for 30 days then 200mg daily. 2. Will follow in clinic in 1-2 months and earlier as needed. Conner Charles MD [facility] ORDER YUKO Final Result Performing Organization Address [facility] de Phone Number [facility] [address] [place] [address], [id number] * POCT glucose (05/01/2025 5:34 AM CDT) Only the most recent of3 resultswithin the time period is included. GLUCOSE POC 92 70 - 109 05/01/2025 5:49 AM CDT [facility] 05/01/2025 5:34 AM CDT Khris Mckeon MD POCT ORDERABLES - DEVICE Final R esult Performing Organization Address [facility] de Phone Number [facility] [address] [place] [address], [phone] * (ABNORMAL) PROTIME/INR, VENOUS (05/01/2025 2:11 AM CDT) Only the most recent of3 resultswithin the time period is included. PROTIME 14.9(H) 9.4 - 12.5 SEC 05/01/2025 2:48 AM CDT [facility] INR 1.3(H) 0.8 - 1.1 05/01/2025 2:48 AM CDT [facility] 05/01/2025 2:11 AM CDT Khris Mckeon MD LABORATORY Final Result [facility] [address] [place] [address], [phone] * (ABNORMAL) COMPREHENSIVE METABOLIC PANEL (05/01/2025 2:11 AM CDT) Only the most recent of4 resultswithin the time period is included. SODIUM S/P/B 134(L) 136 - 145 MMOL/L 05/01/2025 2:50 AM CDT [facility] POTASSIUM S/P/B 4.1 3.5 - 5.1 MMOL/L 05/01/2025 2:50 AM CDT [facility] CHLORIDE S/P/B 106 97 - 115 MMOL/L 05/01/2025 2:50 AM CDT [facility] CO2 22.0 21.0 - 32.0 MMOL/L 05/01/2025 2:50 AM CDT [facility] GLUCOSE 110(H) 74 - 106 MG/DL 05/01/2025 2:50 AM CDT [facility] BUN 12 7 - 18 MG/DL 05/01/2025 2:50 AM CDT [facility] CREATININE S/P/B 0.88 0.70 - 1.30 MG/DL 05/01/2025 2:50 AM CDT [facility] CALCIUM S/P/B 8.7 8.5 - 10.1 MG/DL 05/01/2025 2:50 AM CDT [facility] BILIRUBIN TOTAL S/P/B 1.0 0.2 - 1.0 MG/DL 05/01/2025 2:50 AM CDT [facility] ALKALINE PHOSPHATASE S/P/B 98 45 - 115 U/L 05/01/2025 2:50 AM CDT [facility] AST 46(H) 15 - 37 U/L 05/01/2025 2:50 AM CDT [facility] ALT 32 16 - 61 U/L 05/01/2025 2:50 AM CDT [facility] TOTAL PROTEIN S/P/B 6.5 6.4 - 8.2 G/DL 05/01/2025 2:50 AM CDT [facility] ALBUMIN S/P/B 2.6(L) 3.4 - 5.0 G/DL 05/01/2025 2:50 AM CDT [facility] ANION GAP 6.0 2.0 - 10.0 MMOL/L 05/01/2025 2:50 AM CDT [facility] OSMOLALITY (CALC) 278 MOSM/KG 025 2:50 AM CDT [facility] Comment:REFERENCE RANGE NOT ESTABLISHED GFR ESTIMATE >90 >90 ML/MIN/1. 73 M2 05/01/2025 2:50 AM CDT [facility] GFR NOTES GFR REFERENCE S: 05/01/2025 2:50 AM T [facility] Comment: THE ESTIMATED GFR IS CALCULATED USING THE 2020 CKD-EPI EQUATION. THE FOLLOWING CATEGORIES FOR GRADING RENAL FUNCTION ARE RECOMMENDED BY THE INTERNATIONAL SOCIETY OF NEPHROLOGY (KDIGO 2012 CLINICAL PRACTICE GUIDELINE). G1,NORMAL OR HIGH: >89 ml/min/1.73 m2 G2,MILDLY DECREASED: 60-89 ml/min/1.73 m2 G3A,MILDLY TO MODERATELY DECREASED: 45-59 ml/min/1.73 m2 G3B,MODERATELY TO SEVERELY DECREASED: 30-44 ml/min/1.73 m2 G4,SEVERELY DECREASED: 15-29 ml/min/1.73 m2 G5,KIDNEY FAILURE: <15 ml/min/1.73 m2 05/01/2025 2:11 AM CDT Khris Mckeon MD LABORATORY Final Result [facility] [address] [place] [address], [phone] * (ABNORMAL) CBC W/DIFF AUTOMATED (05/01/2025 2:11 AM CDT) Only the most recent of4 resultswithin the time period is included. WBC 10.88(H) 4.00 - 10.80 x10'3/uL 05/01/2025 2:24 AM CDT [facility] RBC 3.89(L) 4.50 - 6.10 x10'6/uL 05/01/2025 2:24 AM CDT [facility] HGB 12.4(L) 13.0 - 18.0 G/DL 05/01/2025 2:24 AM CDT [facility] HCT 36.0(L) 37.0 - 52.0 % 05/01/2025 2:24 AM CDT [facility] MCV 92.5 78.0 - 100.0 FL 05/01/2025 2:24 AM CDT [facility] MCH 31.9(H) 27.0 - 31.0 PG 05/01/2025 2:24 AM CDT [facility] MCHC 34.4 33.0 - 36.0 G/DL 05/01/2025 2:24 AM CDT [facility] RDW 13.7 11.5 - 14.5 % 05/01/2025 2:24 AM CDT [facility] PLT 146(L) 150 - 350 x10'3/uL 05/01/2025 2:24 AM CDT [facility] MPV 10.5(H) 7.4 - 10.4 FL 05/01/2025 2:24 AM CDT [facility] DIFFERENTIAL TYPE AUTOMATED DIFFERENTIAL 05/01/2025 2:24 AM CDT [facility] SEG NEUTROPHILS 68.6 % 2:24 AM CDT [facility] LYMPHOCYTES 14.8 % 05/01/2025 2:24 AM CDT [facility] MONOCYTES 10.9 % 05/01/2025 2:24 AM CDT [facility] EOSINOPHILS 4.9 % 05/01/2025 2:24 AM CDT [facility] BASOPHILS 0.5 % 05/01/2025 2:24 AM CDT [facility] IMMATURE GRANS % 0.3 % 05/01/20 2:24 AM CDT [facility] ABS. NEUTROPHILS 7.47 1.60 - 8.30 x10'3/uL 05/01/2025 2:24 AM CDT [facility] ABS. LYMPHOCYTES 1.61 0.80 - 4.70 x10'3/uL 05/01/2025 2:24 AM CDT [facility] ABS. MONOCYTES 1.19 0.00 - 1.50 x10'3/uL 05/01/2025 2:24 AM CDT [facility] ABS. EOSINOPHILS 0.53(H) 0.00 - 0.40 x10'3/uL 05/01/2025 2:24 AM CDT [facility] ABS. BASOPHILS 0.05 0.00 - 0.20 x10'3/uL 05/01/2025 2:24 AM CDT [facility] ABS. IMMATURE GRANULOCYTES 0.03 0.00 - 0.03 x10'3/uL 05/01/2025 2:24 AM CDT [facility] ABS. NUCLEATED RBC'S 0.00 0.00 - 0.01 x10'3/uL 05/01/2025 2:24 AM CDT [facility] NRBC % 0.0 % 05/01/2025 2:24 AM CDT [facility] 05/01/2025 2:11 AM CDT us Anas Mahmoud MD LABORATORY Final Result Performing Organization Address [facility] de Phone Number [facility] [address] [place] [address], [phone] * PHOSPHORUS, INORGANIC PHOSPHATE (05/01/2025 2:11 AM CDT) Only the most recent of2 resultswithin the time period is included. PHOSPHORUS 2.7 2.5 - 4.9 MG/DL 05/01/2025 2:50 AM CDT [facility] 05/01/2025 2:11 AM CDT Khris Mckeon MD LABORATORY Final Result Performing Organization Address [facility] de Phone Number [facility] [address] [place] [address], [phone] * MAGNESIUM (05/01/2025 2:11 AM CDT) Only the most recent of4 resultswithin the time period is included. MAGNESIUM 1.7 1.6 - 2.6 MG/DL 05/01/2025 2:50 AM CDT [facility] 05/01/2025 2:11 AM CDT us Khris Mckeon MD LABORATORY Final Result Performing Organization Address [facility] de Phone Number [facility] [address] [place] [address], [phone] * CULTURE, EYE OR EAR W/ GRAM STAIN (04/29/2025 12:55 PM CDT) SPEC DESCRIPTION CONJUNCTIVA,R IGHT: SWAB 04/29/2025 1:02 PM CDT [facility] SPECIAL REQUESTS NO SPECIAL REQUEST 04/29/2025 1:02 PM CDT [facility] GRAM STAIN RESULT FEW NEUTROPHILS SEEN 04/29/2025 10:08 PM CDT [facility] GRAM STAIN RESULT MANY GRAM POSITIVE COCCI IN PAIRS 04/29/2025 10:08 PM CDT [facility] CULTURE RESULT FEW STAPHYLOCOCCU S, COAGULASE NEGATIVE 05/02/2025 12:43 PM CDT [facility] CULTURE RESULT MANY DIPHTHEROID BACILLI 05/02/2025 12:43 PM CDT [facility] STRUCTURE OF CONJUNCTIVA OF RIGHT EYE / Unknown 04/29/2025 12:55 PM CDT 04/29/2025 1:52 PM CDT Comment:SWAB us Khris Mckeon MD MICROBIOLOGY - GENERAL ORDERABLE S Final Result [facility] [address] [place] [address], [phone] * USE TRANSESOPHAGEAL ECHO (04/28/2025 8:16 AM CDT) Anatomical Region Laterality Modality Cardiac Echocardiogram 04/28/2025 7:23 AM CDT Narrative 04/28/2025 9:14 AM CDT Transesophageal Echocardiography Report Pat.Name: JOYCE LEIJA Pat.ID: [id number] .Date: 04/28/2025 Refer.MD: KARINE NELSON Exam Time: 7:23:00 AM Study Type:TRANSESOPHAGEAL ECHO (THOMAS) Height: 178 cm Age: 11 1965,59Y Sex: M BP: 143/110 HR: 145 bpm Sonogrphr: Chris Little [facility] Pat. Stat.:Inpatient CPT - 4: [id number] [id number] Reason for Study:Atrial fibrillation / flutter Procedures: 2D, Doppler, Color Flow, Transesophageal ++++++++++++++++++++++++++++++++++++ SUMMARY: ++++++++++++++++++++++++++++++++++++ The rhythm is atrial fibrillation with a rapid ventricular rate (110-140's bpm). The left ventricular size is normal. The left ventricular systolic function is lower limits of normal. Estimated left ventricular ejection fraction is 50-55%. The right ventricular size is normal. Right ventricular systolic function is at the lower limit of normal. The left atrial size is mild to moderately enlarged. Left atrial appendage shows no evidence of thrombus. Mild mitral regurgitation. There is trace tricuspid regurgitation. ++++++++++++++++++++++++++++++++++++ FINDINGS: ++++++++++++++++++++++++++++++++++++ THOMAS: The patient was counseled and an informed consent was obtained. IV sedation was administered. The transesophageal echo probe was inserted into the posterior pharynx and the esophagus was then intubated without difficulty. LV: The left ventricular size is normal. The left ventricular systolic function is lower limits of normal. Estimated left ventricular ejection fraction is 50-55%. No concentric left ventricular hypertrophy. RV: The right ventricular size is normal. Right ventricular systolic function is at the lower limit of normal. LA: The left atrial size is mild to moderately enlarged. Left atrial appendage shows no evidence of thrombus. RA: Right atrial size is mildly enlarged. ROHINI: Trivial pericardial effusio. AO: The aorta is atherosclerotic. PA: Unable to reliably quantitate pulmonary systolic pressure. PVn: The pulmonary vein doppler wave form is blunted--the rhythm is atrial fibrillation. AV: The aortic valve is trileaflet. No evidence of aortic valve stenosis. No evidence of aortic valve regurgitation. MV: Structurally normal mitral valve. Mild mitral regurgitation. No evidence of mitral stenosis. PV: Pulmonic valve not well visualized. TV: Structurally normal tricuspid valve. A trace of tricuspid regurgitation. ++++++++++++++++++++++++++++++++++++ THOMAS: ++++++++++++++++++++++++++++++++++++ Pre THOMAS BP HR 143/110 145 Comments: thomas probe 92 <Electronic Signature> 04/28/2025 09:14 AM Marquis Frances M.D. Procedure Note Marquis Frances MD - 04/28/2025 Transesophageal Echocardiography Report Pat.Name: JOYCE LEIJA Pat.ID: [id number] .Date: 04/28/2025 Refer.MD: KARINE NELSON Exam Time: 7:23:00 AM Study Type:TRANSESOPHAGEAL ECHO (THOMAS) Height: 178 cm Age: 12 1965,59Y Sex: M BP: 143/110 HR: 145 bpm Sonogrphr: Chris Little [facility] Pat. Stat.:Inpatient CPT - 4: [id number] Reason for Study:Atrial fibrillation / flutter Procedures: 2D, Doppler, Color Flow, Transesophageal ++++++++++++++++++++++++++++++++++++ SUMMARY: ++++++++++++++++++++++++++++++++++++ The rhythm is atrial fibrillation with a rapid ventricular rate (110-140's bpm). The left ventricular size is normal. The left ventricular systolic function is lower limits of normal. Estimated left ventricular ejection fraction is 50-55%. The right ventricular size is normal. Right ventricular systolic function is at the lower limit of normal. The left atrial size is mild to moderately enlarged. Left atrial appendage shows no evidence of thrombus. Mild mitral regurgitation. There is trace tricuspid regurgitation. ++++++++++++++++++++++++++++++++++++ FINDINGS: ++++++++++++++++++++++++++++++++++++ THOMAS: The patient was counseled and an informed consent was obtained. IV sedation was administered. The transesophageal echo probe was inserted into the posterior pharynx and the esophagus was then intubated without difficulty. LV: The left ventricular size is normal. The left ventricular systolic function is lower limits of normal. Estimated left ventricular ejection fraction is 50-55%. No concentric left ventricular hypertrophy. RV: The right ventricular size is normal. Right ventricular systolic function is at the lower limit of normal. LA: The left atrial size is mild to moderately enlarged. Left atrial appendage shows no evidence of thrombus. RA: Right atrial size is mildly enlarged. ROHINI: Trivial pericardial effusio. AO: The aorta is atherosclerotic. PA: Unable to reliably quantitate pulmonary systolic pressure. PVn: The pulmonary vein doppler wave form is blunted--the rhythm is atrial fibrillation. AV: The aortic valve is trileaflet. No evidence of aortic valve stenosis. No evidence of aortic valve regurgitation. MV: Structurally normal mitral valve. Mild mitral regurgitation. No evidence of mitral stenosis. PV: Pulmonic valve not well visualized. TV: Structurally normal tricuspid valve. A trace of tricuspid regurgitation. ++++++++++++++++++++++++++++++++++++ THOMAS: ++++++++++++++++++++++++++++++++++++ Pre THOMAS BP HR 143/110 145 Comments: thomas probe 92 <Electronic Signature> 04/28/2025 09:14 AM Marquis Frances M.D. us Karine Nelson PA-C ECHO Final Res ult * Cardioversion external (04/28/2025 8:13 AM CDT) Narrative [facility] - 04/28/2025 8:13 AM CDT Conner Charles MD 04/28/2025 8:14 AM Cardiac Electrophysiology Procedure Note Electrical cardioversion of atrial fibrillation. ID: Joyce Leija : 1965 No primary care provider on file. LOS: 1 day DATE OF PROCEDURE: 04/28/2025 INDICATION: Atrial fibrillation TELEGRAPHIC TYPEWRITER OPERATOR CHIEF: CONNER CHARLES MD TECHNIQUE: Baseline rhythm was atrial fibrillation with ventricular rate of 123 bpm. A 360 J biphasic synchronized shock was delivered x2 and successfully restored normal sinus rhythm but with immediate recurrence of atrial fibrillation. The patient tolerated the procedure well without complications. I performed deep sedation using propofol for a total of 30 minutes. I supervised and directed Linette De Santiago RN who assisted in monitoring patient's level of consciousness and physiological status throughout the procedure. I also supervised and directed the respiratory therapist who assisted in maintaining airway. SUMMARY: Unsuccessful electrical cardioversion of atrial fibrillation. PLAN: 1. Start IV amiodarone loading 2. Repeat cardioversion on Thursday Karine Nelson PA-C CV CARDIAC SERVICES ORDER YUKO Final Result Performing Organization Address [facility] Co de Phone Number [facility] [address] [place] [address], [id number] * (ABNORMAL) PARTIAL THROMBOPLASTIN TIME,PTT (04/28/2025 2:22 AM CDT) PTT 39.9(H) 25.1 - 36.5 SEC 04/28/2025 3:22 AM CDT [facility] 04/28/2025 2:22 AM CDT Sara López MD LABORATORY Final Result Performing Organization Address [facility] Co de Phone Number [facility] [address] [place] [address], [id number] * LIPID PANEL (04/28/2025 2:22 AM CDT) CHOLESTEROL 112 MG/DL 04/28/2025 3:31 AM CDT [facility] Comment:DESIRABLE: <200 TRIGLYCERIDES 123 MG/DL 04/28/2025 3:31 AM CDT [facility] Comment:<150 NORMAL HDL 51 >39 MG/DL 04/28/2025 3:31 AM CDT [facility] LDL (CALCULATED) 36 MG/DL 04/28/20 3:31 AM CDT [facility] Comment: <100 OPTIMAL CALCULATED USING THE FRIEDEWALD EQUATION VLDL CALCULATION 25 MG/DL 04/28/20 3:31 AM CDT [facility] Comment:REFERENCE RANGE NOT ESTABLISHED CHOL/HDL RATIO 2.2 04/28/2025 3:31 AM CDT [facility] Comment:REFERENCE RANGE NOT ESTABLISHED LDL/HDL 0.7 04/28/2025 3:31 AM CDT [facility] Comment:REFERENCE RANGE NOT ESTABLISHED NON HDL CHOLESTEROL 61 MG/DL 04/28/2025 3:31 AM CDT [facility] Comment:REFERENCE RANGE NOT ESTABLISHED 04/28/2025 2:22 AM CDT us Sara López MD LABORATORY Final Result Performing Organization Address [facility] Co de Phone Number [facility] [address] [place] [address], [place] [phone] * THYROID STIM HORMONE, TSH (04/28/2025 2:22 AM CDT) TSH 3.320 0.358 - 3.740 uIU/ML 04/28/2025 3:31 AM CDT [facility] Comment: ASSAY PERFORMED BY CHEMILUMINESCENCE METHODOLOGY USING SIEMENS DIMENSION VISTA REAGENT. PATIENT RESULTS DETERMINED BY ASSAYS USING DIFFERENT MANUFACTURERS FOR METHODS MAY NOT BE COMPARABLE. 04/28/2025 2:22 AM CDT us Sara López MD LABORATORY Final Result Performing Organization Address [facility] Co de Phone Number [facility] [address] [place] [address], [place] [phone] * URINALYSIS (04/27/2025 5:29 PM CDT) COLOR (U) LIGHT YELLOW 04/27/2025 5:59 PM CDT [facility] TRANSPARENCY CLEAR 04/27/2025 5:59 PM CDT [facility] SPECIFIC GRAVITY (U) 1.013 1.002 - 1.035 04/27/2025 5:59 PM CDT [facility] U PH 7.0 5 - 8 04/27/2025 5:59 PM CDT [facility] PROTEIN RANDOM (U) NEGATIVE NEGATIVE 04/27/2025 5:59 PM CDT [facility] GLUCOSE (U) NEGATIVE NEGATIVE MG/DL 04/27/2025 5:59 PM CDT [facility] KETONES MG/DL (U) NEGATIVE NEGATIVE 04/27/2025 5:59 PM CDT [facility] BILIRUBIN (U) NEGATIVE NEGATIVE 04/27/2025 5:59 PM CDT [facility] BLOOD (U) NEGATIVE NEGATIVE 04/27/2025 5:59 PM CDT [facility] NITRITES NEGATIVE NEGATIVE 04/27/2025 5:59 PM CDT [facility] UROBILINOGEN NORMAL 0 - 1 EU/DL 04/27/2025 5:59 PM CDT [facility] LEUKOCYTES (U) NEGATIVE NEGATIVE 04/27/2025 5:59 PM CDT [facility] RBC/HPF <1 0 - 3 /HPF 04/27/2025 5:59 PM CDT [facility] WBC/HPF <1 0 - 6 /HPF 04/27/2025 5:59 PM CDT [facility] BACTERIA (U) NONE /HPF 04/27/2025 5:59 PM CDT [facility] HYALINE CASTS 1 04/27/2025 5:59 PM CDT [facility] URINE SPECIMEN OBTAINED BY CLEAN CATCH PROCEDURE / Unknown 04/27/2025 5:29 PM CDT us Sara López MD URINE ORDERABLES Final Resul t [facility] [address] [place] [address], [id number] * USE ECHOCARDIOGRAM W CON (04/27/2025 5:11 PM CDT) Anatomical Region Laterality Modality NA Echocardiogram 04/27/2025 4:11 PM CDT Narrative 04/28/2025 9:11 AM CDT Echocardiography Report Pat.Name: JOYCE LEIJA Pat.ID: [id number] St.Date: 04/27/2025 Tyler.MD: [id number] RUDDY Montgomery EWDPROV EWDPROV Exam Time: 4:11:00 PM Study Type:ECHO W/CONTRAST COMPLETE Height: 178 cm Weight: 87.1 kg BSA: 2.05 m2 Age: 11 1965,59Y Sex: M BP: 161/118 Sonogrphr: Miguel Yadav [facility] Pat. Stat.:Inpatient Room: [facility] CPT - 4: C8929 Reason for Study:Atrial fibrillation / flutter, LV function assessment Procedures: 2D, M-mode, Doppler, Color Flow, Definity was used to enhance endocardial definition. Portable ++++++++++++++++++++++++++++++++++++ SUMMARY: ++++++++++++++++++++++++++++++++++++ The rhythm is atrial fibrillation with a rapid ventricular rate (>100 bpm). The left ventricular size is normal. The left ventricular systolic function is lower limits of normal. Estimated left ventricular ejection fraction is 50-55%. Mild concentric left ventricular hypertrophy. The right ventricle is normal. Right ventricular systolic function is at the lower limits of normal. The left atrial size is mild to moderately enlarged. The proximal ascending aorta is mildly dilated--3.5cm. Trace to mild tricuspid regurgitation. ++++++++++++++++++++++++++++++++++++ FINDINGS: ++++++++++++++++++++++++++++++++++++ LV: The left ventricular size is normal. The left ventricular systolic function is lower limits of normal. The calculated ejection fraction is 50%. Estimated left ventricular ejection fraction is 50-55%. Wall thickness is at the upper limits of normal. The average E/e' is indeterminate at 9-14 and EF is > or equal to 50. Left ventricular diastolic function is not accessible due to atrial fibrillation. Left ventricular filling pressure is indeterminate. WM: Wall motion appears normal in all segments. RV: The right ventricular size is normal. Right ventricular systolic function is at the lower limits of normal. TAPSE = 14mm (<16 mm indicates systolic RV dysfunction). Fractional area change (FAC) is calculated at 30%. (Normal value is 35% and above) LA: The left atrial size is mild to moderately enlarged. RA: Right atrial size is mildly enlarged. ROHINI: No evidence of pericardial effusion. Prominent pericardial fat pad visualized. AO: Aortic root is not dilated. The proximal ascending aorta measures 3.5cm. SVn: Inferior vena cava is not assessable. AV: The aortic valve is trileaflet. No evidence of aortic valve stenosis. No evidence of aortic regurgitation. Mild aortic valve sclerosis. MV: Structurally normal mitral valve. No evidence of mitral regurgitation. PV: Structurally normal pulmonic valve. No evidence of pulmonic regurgitation. TV: Structurally normal tricuspid valve. Trace to mild tricuspid regurgitation. ++++++++++++++++++++++++++++++++++++ MEASUREMENTS: ++++++++++++++++++++++++++++++++++++ DOPPLER LVOT LVOTpkPG 2.1 mmHg LVOTmnPG 1.1 mmHg LVOTpkVel 73.2 cm/s (70-110) LVOT SV 49 ml LVOT TVI 12.9 cm LVOT CO 103 ml/s AV Forward Flow AV TVI 21.2 cm AV pkPG 6 mmHg AV pkVel 118 cm/s (100-170) Area (TVI) 2.29 cm2 (3-5)* AV mnVel 78.1 cm/s Area (Joe) 2.34 cm2 (3-5)* AV mnPG 2.8 mmHg MV Forward Flow MV DeTm 144 msec MV pkPG 5 mmHg MV mnPG 3 mmHg MV pkE 105 cm/s (60-130) Lat E' Lat e 10.7 cm/s Lat E/E' Lat E/e 9.8 Med E' Med e 8.81 cm/s Med E/E' Med E/e 11.9 Aortic Valve Aortic Valve Ar 1.12 Aortic Valve Ve 0.62 AV DI Value 0.6 KATHRYN (VTI) Index Value 1.12 Left Ventricle Ratio of MV Pea 10.8 Mean Myocardial 9.75 cm/s LV Mass 2D Value 175 g LV Mass Knaai9L Value 85.4 g/m2 Right Ventricle Right Ventricle 9.25 cm/s 2D Left Ventricle LVIDd 4.46 cm (3.6-5.2) Relative Wall T 0.502 LVIDs 3.17 cm (2.3-3.9)+ LV RWT 0.493 % LV EF(Bi-Plane) 50.1 % (63-77)* LVPW LVPWd 1.1 cm Ventricular Septum IVSd 1.1 cm Aorta Ao Rtd 3.3 cm (zsc 1.2) Ao Asc 1.71 cm (zsc -2.7)* LVOT LVOT 2.19 cm Ratios IVS Inferior vena cava IVC Diam 1.8 cm LA Biplane LAVol I BP 33.2 ml/m2 LV Biplane [place] 3.01 % [place] 1.31 % LV Left Ventricle Mass by M-mode LV Mass 175 g Right Ventricle Right Ventricle 2.8 cm [place] 7.9 cm Right Ventricul 8.2 cm2/m2 Right Ventricle 2.2 cm Right Ventricul 5.71 cm2/m2 Right Ventricul 30.4 % MMODE TA Tricuspid Annul 1.41 cm <Electronic Signature> 04/28/2025 09:11 AM Marquis Frances M.D. Procedure Note Marquis Frances MD - 04/28/2025 Echocardiography Report Pat.Name: JOYCE LEIJA Pat.ID: [id number] .Date: 04/27/2025 : [id number] RUDDY Montgomery EWDPROV EWDPROV Exam Time: 4:11:00 PM Study Type:ECHO W/CONTRAST COMPLETE Height: 178 cm Weight: 87.1 kg BSA: 2.05 m2 Age: 11 1965,59Y Sex: M BP: 161/118 Sonogrphr: Miguel Yadav [facility] Pat. Stat.:Inpatient Room: 754 CPT - 4: C8929 Reason for Study:Atrial fibrillation / flutter, LV function assessment Procedures: 2D, M-mode, Doppler, Color Flow, Definity was used to enhance endocardial definition. Portable ++++++++++++++++++++++++++++++++++++ SUMMARY: ++++++++++++++++++++++++++++++++++++ The rhythm is atrial fibrillation with a rapid ventricular rate (>100 bpm). The left ventricular size is normal. The left ventricular systolic function is lower limits of normal. Estimated left ventricular ejection fraction is 50-55%. Mild concentric left ventricular hypertrophy. The right ventricle is normal. Right ventricular systolic function is at the lower limits of normal. The left atrial size is mild to moderately enlarged. The proximal ascending aorta is mildly dilated--3.5cm. Trace to mild tricuspid regurgitation. ++++++++++++++++++++++++++++++++++++ FINDINGS: ++++++++++++++++++++++++++++++++++++ LV: The left ventricular size is normal. The left ventricular systolic function is lower limits of normal. The calculated ejection fraction is 50%. Estimated left ventricular ejection fraction is 50-55%. Wall thickness is at the upper limits of normal. The average E/e' is indeterminate at 9-14 and EF is > or equal to 50. Left ventricular diastolic function is not accessible due to atrial fibrillation. Left ventricular filling pressure is indeterminate. WM: Wall motion appears normal in all segments. RV: The right ventricular size is normal. Right ventricular systolic function is at the lower limits of normal. TAPSE = 14mm (<16 mm indicates systolic RV dysfunction). Fractional area change (FAC) is calculated at 30%. (Normal value is 35% and above) LA: The left atrial size is mild to moderately enlarged. RA: Right atrial size is mildly enlarged. ROHINI: No evidence of pericardial effusion. Prominent pericardial fat pad visualized. AO: Aortic root is not dilated. The proximal ascending aorta measures 3.5cm. SVn: Inferior vena cava is not assessable. AV: The aortic valve is trileaflet. No evidence of aortic valve stenosis. No evidence of aortic regurgitation. Mild aortic valve sclerosis. MV: Structurally normal mitral valve. No evidence of mitral regurgitation. PV: Structurally normal pulmonic valve. No evidence of pulmonic regurgitation. TV: Structurally normal tricuspid valve. Trace to mild tricuspid regurgitation. ++++++++++++++++++++++++++++++++++++ MEASUREMENTS: ++++++++++++++++++++++++++++++++++++ DOPPLER LVOT LVOTpkPG 2.1 mmHg LVOTmnPG 1.1 mmHg LVOTpkVel 73.2 cm/s (70-110) LVOT SV 49 ml LVOT TVI 12.9 cm LVOT CO 103 ml/s AV Forward Flow AV TVI 21.2 cm AV pkPG 6 mmHg AV pkVel 118 cm/s (100-170) Area (TVI) 2.29 cm2 (3-5)* AV mnVel 78.1 cm/s Area (Joe) 2.34 cm2 (3-5)* AV mnPG 2.8 mmHg MV Forward Flow MV DeTm 144 msec MV pkPG 5 mmHg MV mnPG 3 mmHg MV pkE 105 cm/s (60-130) Lat E' Lat e 10.7 cm/s Lat E/E' Lat E/e 9.8 Med E' Med e 8.81 cm/s Med E/E' Med E/e 11.9 Aortic Valve Aortic Valve Ar 1.12 Aortic Valve Ve 0.62 AV DI Value 0.6 KATHRYN (VTI) Index Value 1.12 Left Ventricle Ratio of MV Pea 10.8 Mean Myocardial 9.75 cm/s LV Mass 2D Value 175 g LV Mass Hoyae9K Value 85.4 g/m2 Right Ventricle Right Ventricle 9.25 cm/s 2D Left Ventricle LVIDd 4.46 cm (3.6-5.2) Relative Wall T 0.502 LVIDs 3.17 cm (2.3-3.9)+ LV RWT 0.493 % LV EF(Bi-Plane) 50.1 % (63-77)* LVPW LVPWd 1.1 cm Ventricular Septum IVSd 1.1 cm Aorta Ao Rtd 3.3 cm (zsc 1.2) Ao Asc 1.71 cm (zsc -2.7)* LVOT LVOT 2.19 cm Ratios IVS Inferior vena cava IVC Diam 1.8 cm LA Biplane LAVol I BP 33.2 ml/m2 LV Biplane [place] 3.01 % [place] 1.31 % LV Left Ventricle Mass by M-mode LV Mass 175 g Right Ventricle Right Ventricle 2.8 cm [place] 7.9 cm Right Ventricul 8.2 cm2/m2 Right Ventricle 2.2 cm Right Ventricul 5.71 cm2/m2 Right Ventricul 30.4 % MMODE TA Tricuspid Annul 1.41 cm <Electronic Signature> 04/28/2025 09:11 AM Marquis Frances M.D. 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
--- OUTSIDE RECORDS SUMMARY | 2025-06-12 01:04 | XMS_ITS | Encounter Summary ---
Author Organization [facility] Address [address] [place] [address] Care Team Providers Care Take Away Man Name Role Phone Boo Argueta MD Primary Care Provider + [phone] Kannan Rosenthal DO Primary Care Provider Encounter Details Date Type Department Care Team (Late st Contact Info) Description 10/23/2015 Orders Only [facility] Health Information Management [address] [place] [address] Scanning, Provider Social History Tobacco Use Types Packs/Day Years Used Date Smoking Tobacco: Never Assessed Sex and Gender Information Value Date Recorded Sex Assigned at Not on file Legal Sex Male 9:22 PM [employer] DOCENT Gender Identity Not on file Sexual Orientation [...] on filedocumented in this encounter Care Teams Take Away Man Relationship Specialty Start Date End Date Boo Argueta MD [address] [place] [address] PCP - General 02/19/17 04/18/25 Kannan Rosenthal DO [address] [place] [address] PCP - General Family Medicine 04/19/25 documented as of this encounter
--- OUTSIDE RECORDS SUMMARY | 2025-06-12 01:04 | XMS_ITS | Clinical Summary ---
Author Organization [facility] Address [address] [place] [address] Care Team Providers Care Cake Decorator Name Role Phone FarhanaKannan desir Erazo Primary [...] (10/05/2018): Added automatically from request for surgery [id number] Screen for colon cancer 10/05/2018 Overview (10/05/2018): Added automatically from request for surgery [id number] Encounters Date Type Department Care Team Description 04/10/2025 10:00 AM CDT Office Visit [facility] Cardiology [address] [place] [phone] Kerry Steel MD Lipid screening (Primary Dx); Dilated cardiomyopathy (HCC); Paroxysmal atrial fibrillation (HCC) 04/03/2025 10:00 AM CDT Office Visit [facility] Cardiology [address] [place] [phone] Kerry Steel MD Paroxysmal atrial fibrillation (HCC) [...] on file 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 Room: [facility] ENDOSCOPY ROOM 1 Note Status: Finalized Patient [...] passed under direct vision.The Pediatric Colonoscope [id number] was introduced through the anus and advanced [...] 8:35 AM Procedure Code(s): --- Professional --- 59881, Colonoscopy, flexible; with biopsy, single or multiple Diagnosis Code(s): --- Professional --- Z86.010, Personal history of colonic polyps K64.8, Other hemorrhoids D12.5, Benign neoplasm of sigmoid colon K57.30, Diverticulosis of large intestine without perforation orabscess without bleeding CPT copyright 2017 [employer]. All rights reserved. The codes documented in this report are preliminary and upon skeiner reviewmay be revised to meet current compliance requirements. Recognized by the [employer] for promoting quality in endoscopy Bettie Galan MD ENDOSCOPY PROCEDURES Final Result * Hepatitis C RNA, quantitative, PCR (02/19/2017 3:50 PM CDT) HCV RNA qn Undetected Undetected IUnits/mL [facility] MARCUS ([facility]) Comment: Result in log IU/mL is Undetected. ADDITIONAL INFORMATION The quantification range of this assay is 15 to 100,000,000 IU/mL (1.18 log to 8.00 log IU/mL). Testing was performed by the [employer] AmpliPrep/[employer] TaqMan HCV Test, version 2.0 ([employer] Test Performed by: [place] [address] Blood specimen (specimen) 02/19/2017 3:50 PM CDT 02/19/2017 3:55 PM CDT Bettie Galan MD LAB MICROBIOLOGY - GENERAL ORDERABLES Final Result [facility]YSON MARCUS ([facility]) 1 [facility] Department [place] [address] from Last 3 Months or Most Recently Relevant to Health Maintenance Insurance [employer] [facility] HMO Advance Directives For more information, please contact: [phone] * Full Code (Latest Code Status on File) Date Activated Date Inactivated Comments 11/02/2018 7:44 AM 11/02/2018 1:49 PM * Full Code Date Activated Date Inactivated Comments 11/02/2018 7:44 AM 11/02/2018 7:44 AM Care Teams Cake Decorator Relationship Specialty Start Date End Date Kannan Rosenthal DO [address] [place] [address] PCP - General Family Medicine 04/19/25
--- NOTE | 2025-06-12 11:47 | WPDHPUPDATE1 ---
History and Physical Update Update Date/Time: 06/12/25 11:47 History and Physical has been reviewed, including an updated exam of the patient. There are NO changes in the patient's condition. Risks, benefits, and alternatives have been discussed and questions answered. Patient agrees to proceed with procedure.
[2025-06-12] MEDS: LACTATED RINGERS 1,000 ML 30 ML IV CONT (12:35)
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
--- NOTE | 2025-06-12 14:08 | S_PTH ---
PATIENT: Db Carbajal LOC: [facility] U#:[id number] AGE/SX: 59/M ROOM: RE06/12/[address]: Irving Correia MD : 1965 BED: DIS: 06/12/2025 SPEC #: [id number] RECD: 06/12/25 14:30 STATUS: FIDE REQ #: [id number] ANDRES: 06/12/25 14:[address]: Irving Correia DEPT: [facility] Surgical RECD BY: Shannan Patrick ENTERED: 06/12/25 14:31 SP TYPE: Surgical OTHR DR: Kannan Rosenthal DO Tissues: A - Vocal Cord Biopsy B - Vocal Cord Biopsy Procedures: Hematoxylin and Eosin Stain Gross and Microscopic Level 4
[2025-06-12] MEDS: OXYMETAZOLINE HCL 0.05% NAS 15 ML BTL (*BKC) 1 SPRAY NASAL (14:12)
--- NOTE | 2025-06-12 14:41 | W.PM.PROC2 ---
Procedure Note - Detailed Date of Procedure 06/12/25 Pre-op Diagnosis Other diseases of Larynx, Dysphonia, right laryngeal mass Post-op Diagnosis Same Procedure Performed 1. Direct laryngoscopy 2. Biopsy of right true vocal cord 3. Biopsy of right ventricular lesion Surgeon Irving Correia MD Anesthesia General Indications See above Findings Right cord had some abnormalities ever irregularities in the epithelium slightly erythroplakia as well. The area with the greatest amount of erythroplakia was biopsied. There was also redundant tissue cystic tissue in the right ventricle this was biopsied as well. Minimal bleeding. No complications. Description of Procedure Patient identified consent verified the preop holding area. . The patient brought to the operating room. Time-out performed. General anesthesia induced. Endotracheal tube inserted in the airway and secured. Patient prepped draped position procedure confirmed 2nd time-out performed. Anterior commissure laryngoscope inserted in the airway after a moist Ray-Tay was placed over the maxillary gingiva. Great view of the glottis. Patient placed in suspension. Endoscope utilized. Photo documentation taken. Unfortunate it was not white balanced, the tissue was much more erythoroplakic than it appears in the photo. The area of greatest erythroplakia was biopsied. Minimal bleeding easily stopped with Afrin pledget. The right ventrical lesion was also biopsied, it had a cystic lesion almost like polyp. Minimal bleeding, easily stopped with a Afrin-soaked pledget. No active bleeding. Afrin-soaked pledgets removed. No damage to surrounding tissue. Laryngoscope removed. Moist Ray-Tay removed. Care the patient was given back to Anesthesiology. I performed all dictated portions of procedure. Blood loss 1 cc. No complications. Estimated Blood Loss 1 Drains No Packing No Pathology Yes Complications No immediate complications Condition Stable Disposition PACU [facility] Billing Surgery - Charge Forward: Surgery Billing
== END 2025-06-12 15:59 | disposition home or self-care (01) ==
PROVIDERS: PCP Family Medicine; Visit Provider Otolaryngology
PROC: 0CJS8ZZ Inspection of Larynx, Via Natural or Artificial Opening Endoscopic (ICD-10-PCS; CPT 31535; principal; 2025-06-12 14:00)
DX: D14.1 Benign neoplasm of larynx (principal); I48.0 Paroxysmal atrial fibrillation; I11.0 Hypertensive heart disease with heart failure; I50.20 Unspecified systolic (congestive) heart failure; F17.210 Nicotine dependence, cigarettes, uncomplicated; Z79.01 Long term (current) use of anticoagulants; Z98.890 Other specified postprocedural states; Z86.79 Personal history of other diseases of the circulatory system; Z80.0 Family history of malignant neoplasm of digestive organs; Z80.1 Family history of malignant neoplasm of trachea, bronchus and lung; Z82.49 Family history of ischemic heart disease and other diseases of the circulatory system
CPT/HCPCS: 31535; 88305; J1100; J2003; J2250; J2405; J2704; J3010; J7120